=== PATIENT | male | born 1950 | race Caucasian/White ===

== ENCOUNTER → 2020-06-02 14:47 | Outpatient (POV) | payer MEDICARE, BC, SELFPAY | DX: Z00.00 Encounter for general adult medical examination without abnormal findings (principal) ==

== ENCOUNTER → 2021-01-03 11:13 | Outpatient (POV) | payer OTHER, SELFPAY ==
[2021-01-03 12:35] VITALS: BP 139/84; PULSE 74; RESP 18; O2SAT 98; BMI 36.2
--- NOTE | 2021-01-03 14:14 | HMH.PMCON ---
Assessment and Plan (1) Degenerative joint disease (DJD) of lumbar spine Status: Chronic Category: Medical Code(s): M47.816 - Spondylosis without myelopathy or radiculopathy, lumbar region (2) Lumbar radiculopathy Status: Chronic Category: Medical Code(s): M54.16 - Radiculopathy, lumbar region (3) Back pain Status: Chronic Category: Medical Code(s): M54.9 - Dorsalgia, unspecified - Assessment and plan all Dx Assessment and Plan for all problems:: Patient is going to move forward with looking into places that do medication management. I did offer physical therapy for dry needling he is excepted this. We will move forward with this. I had be happy to see him back in the future. I did briefly mention implantable options however at this time he wants to avoid any surgeries. Dr. Disla has reviewed this note and agrees with this plan of care. This note was dictated using voice recognition software and may contain errors or omissions HPI - Data of Consult Consult date: 01/03/21 Requesting Physician: Roxi Dickerson APRN Primary Care Provider: Referral Provider, MD - Consult Narrative Reason for consult: Back pain History of present illness: Mr. Campbell is a 70 year old male who presents today for consultation regards his low back pain. He recently has moved here from [place]. Patient was a established patient in a pain management clinic in [place]. Patient received some injections with no real relief. Patient states that it was determined he was a surgical candidate however at this time he does not want to move forward with any surgical intervention. Patient manages his pain currently with oxycodone, [place] and Tylenol 3. He takes this as needed. Patient I had a discussion that we would not be refilling these medications at this time. Patient understands. Patient also wanted to discuss dry needling. Patient has had this in the past with good relief. He rates his pain today a 6 out of 10. CC: Roxi Dickerson APRN [place] History I have reviewed the patient's past medical history: Yes Medical History: Reports:: Coronary Artery Disease, Deep Vein Thrombosis, Diabetes Mellitus Type 2, Hyperlipidemia, Hypertension, Peripheral Artery Disease Denies:: Cancer, Diabetes Mellitus Type 1, Internal Pacemaker, MRSA *Have you ever received a pneumonia vaccine?: Yes *Have you received a flu vaccine this season?: Yes Other Medical History: Reports: Arthritis, Thyroid Disease Other Surgeries: Yes: CABG, Cardiac Catheterization, Cardiac Surgery, Coronary Stent. No: Pacemaker Amputation: No Fractures: No - *Social History Smoking Status: Never smoker Alcohol Intake: never *Occupational Status:: other Housing: house Household Members: other *Travel in the last 8 weeks: None Family Hx:: Unable to obtain Review of Systems - Review of Systems ROS General: no recent weight change, no fever, no sleep disturbances Respiratory: no cough, no shortness of air, no recurring pulmonary infections Cardiovascular/Peripheral Vascular: No chest pain, No palpitations, no edema, no shortness of breath. Gastrointestinal: no new onset incontinence, normal bowel movements reported Genitourinary: no new onset incontinence Musculoskeletal: Back pain, leg pain Psychiatric: normal mood/ affect Neurological: [denies new onset weakness in extremities], [denies new onset balance issues] Meds Home Medications Medication Instructions Recorded Confirmed Type Apixaban [Eliquis] 5 mg PO DAILY 01/03/21 01/03/21 History Empagliflozin [Jardiance] 10 mg PO DAILY 01/03/21 01/03/21 History Furosemide [Furosemide 40MG tAB*] 40 mg PO DAILY 01/03/21 01/03/21 History Icosapent Ethyl [Vascepa] 1 gm PO DAILY 01/03/21 01/03/21 History Levothyroxine Sodium [Synthroid 25 mcg PO HS 01/03/21 01/03/21 History 25mcg (0.025mg) tablet] Rosuvastatin Calcium 10 mg PO DAILY 01/03/21 01/03/21 History Semaglutide [Ozempic] 5 mg * WEEKLY
== END ==
PROVIDERS: Visit Provider Clinical Nurse Specialist Family Health
DX: M47.896 Other spondylosis, lumbar region (principal); M54.16 Radiculopathy, lumbar region; M54.9 Dorsalgia, unspecified
CPT/HCPCS: 99202; G0463

== ENCOUNTER → 2021-05-13 13:04 | Outpatient (POV) | payer OTHER, MEDICARE, BC, SELFPAY ==
[2021-05-13 13:40] VITALS: BP 108/73; PULSE 67; RESP 20; TEMP 36.6; O2SAT 95; BMI 36.2
--- NOTE | 2021-05-13 14:03 | P.CONS_ITS ---
[facility] Pain Management SOAP Note Subjective:: This patient is a pleasant 70-year-old white male who we are treating for neck pain and low back pain with radiculopathy symptoms. He recently moved from [place]. He did have a pain management doctor there he has had several injections with no relief of his pain symptoms. He was recommended previously for neck surgery however he did not follow-up. He does take Tylenol 3 prescribed by his previous doctor he does take this as needed. He is here today to talk about his neck pain and low back pain. Objective:: Alert and oriented x3 no acute distress. Patient does have limited range of motion of the cervical spine and lumbar spine. Motor strength of the upper and lower extremities is 5/5. There is no gross sensory deficit. Assessment:: Degenerative disc disease of the cervical spine with cervical radiculopathy symptoms. Degenerative disc disease of lumbar spine with lumbar radiculopathy symptoms. Plan:: We will refer him to Dr. Wallace for neurosurgical evaluation of the cervical spine. We will write him for Tylenol #3 1 tablet daily to help him with his pain symptoms as needed. Carlos Manuel and drug screen are all appropriate [facility] [phone]. [facility] History Medical History: Reports:: Coronary Artery Disease, Deep Vein Thrombosis, Diabetes Mellitus Type 2, Hyperlipidemia, Hypertension, Peripheral Artery Disease Denies:: Cancer, Diabetes Mellitus Type 1, Internal Pacemaker, MRSA *Have you ever received a pneumonia vaccine?: No *Have you received a flu vaccine this season?: No Other Medical History: Reports: Arthritis, Thyroid Disease Other Surgeries: Yes: CABG, Cardiac Catheterization, Cardiac Surgery, Coronary Stent. No: Pacemaker Amputation: No Fractures: No - *Social History Smoking Status: Never smoker Alcohol Intake: never *Occupational Status:: other Housing: house Household Members: other *Travel in the last 8 weeks: None Family Hx:: Unable to obtain
== END ==
PROVIDERS: PCP Family Medicine; Visit Provider Anesthesiology
DX: M50.10 Cervical disc disorder with radiculopathy, unspecified cervical region (principal); M51.16 Intervertebral disc disorders with radiculopathy, lumbar region
CPT/HCPCS: 99212; G0463

== ENCOUNTER → 2021-07-07 11:07 | Outpatient (POV) | payer OTHER, MEDICARE, BC, SELFPAY ==
[2021-07-07 11:31] VITALS: BP 132/90; PULSE 77; RESP 18; O2SAT 95; BMI 33.5
--- NOTE | 2021-07-07 11:51 | HMH.PAINSOAP ---
[facility] Pain Management SOAP Note Subjective:: Patient is a 70-year-old white male who presents today for medication refills. He is being treated for chronic neck pain and low back pain. He did recently relocate from [place]. He was in a pain management center there and has had several injections in the past with minimal relief. He was recommended for cervical spine surgery, however, declined to proceed with surgery. He does take Tylenol 3 prescribed by his primary care provider. This does give him significant relief. He only takes the medication as needed. He rates his pain a [address] Disla did refer the patient to neurosurgery with Dr. Wallace. He does continue to have significant pain in his neck at this time. Patient says the pain is significantly relieved with oral medications. He also has pain that radiates into his bilateral upper extremities. Review of Systems General: No recent weight changes, no fever, no sleep disturbances Respiratory: No cough, no shortness of air, no recurring pulmonary infections Cardiovascular/peripheral vascular: No chest pain, no palpitations, no edema, no shortness of breath Gastrointestinal: No new onset incontinence, normal bowel movements reported Genitourinary: No new onset incontinence Musculoskeletal: Neck pain worse with movement and pain into bilateral upper extremities Psychiatric: [Normal mood/affect] Neurological: [Denies weakness in extremities], [denies balance issues] Objective:: Physical exam General: Alert and oriented x3, no acute distress, pleasant and cooperative Lungs: Respirations even and unlabored, symmetrical chest expansion Eyes: PERRL Musculoskeletal: Flexion and extension of cervical [spine] somewhat guarded secondary to pain, normal gait noted Neurological: Speech clear, no gross sensory deficit Assessment:: Degenerative disc disease cervical spine cervical radiculopathy symptoms, low back pain Plan:: Patient is doing well with his Tylenol 3. We will continue him on Tylenol 3 1 tablet p.o. daily as needed pain. We will see him back in the clinic in 3 months for reevaluation of symptoms. If he has any changes before his next visit he can contact the clinic. Risks and benefits of the medication have been explained in detail to the patient. The patient does understand the risk of dependence on the medication when given over a prolonged period. Patient has been advised of risks of oversedation with the prescribed medication. Narcan has been offered to the paitent in the event of oversedation. Patient has been advised that a family member should also be educated regarding administration of Narcan. The patient has been advised to consult with his/her primary care provider and pharmacist regarding drug-drug interaction of medications currently prescribed. Patient has been prescribed a controlled substance after being counseled on the medication, medication safety, and possible side effects. BLAYNE report has been obtained and reviewed prior to prescription and found to be appropriate. Opioid contract was reviewed and signed by the patient, and that they have agreed to all of the terms set forth by our compliance program. Patient has been instructed to contact the clinic with any concerns before the next appointment. Dr. Disla has reviewed this note and agrees with this plan of care. This note was dictated using voice recognition software and make contain errors or omissions. [facility] History I have reviewed the patient's past medical history: Yes Medical History: Reports:: Coronary Artery Disease, Deep Vein Thrombosis, Diabetes Mellitus Type 2, Hyperlipidemia, Hypertension, Peripheral Artery Disease Denies:: Cancer, Diabetes Mellitus Type 1, Internal Pacemaker, MRSA *Have you ever received a pneumonia vaccine?: No *Have you received a flu vaccine this season?: No Other Medical History: Reports: Arthritis, Thyroid Disease Other Surgeries: Yes: CABG,
== END ==
PROVIDERS: Visit Provider Clinical Nurse Specialist Family Health
DX: M50.10 Cervical disc disorder with radiculopathy, unspecified cervical region (principal); M54.50 Low back pain, unspecified
CPT/HCPCS: 99212; G0463

== ENCOUNTER → 2021-09-14 13:22 | Outpatient (POV) | payer OTHER, MEDICARE, BC, SELFPAY ==
[2021-09-14 13:38] VITALS: BP 138/89; PULSE 94; RESP 20; TEMP 36.2; O2SAT 96; BMI 34.9
--- NOTE | 2021-09-14 15:31 | HMH.PAINSOAP ---
[facility] Pain Management SOAP Note Subjective:: Patient is a pleasant 70-year-old white male who we have been treating for chronic neck pain with degenerative disc disease of the cervical spine with cervical radiculopathy symptoms as well as low back pain with degenerative disease of lumbar spine with lumbar radiculopathy symptoms. He currently is on Tylenol 3 prescribed once daily as needed for pain. He is doing very well with this. He is having issues with the Department of Labor covering his medications. Overall his pain score is 2-3 out of 10. His functional level with this medication. We will continue his Tylenol 3 once daily as needed for pain. We will follow back up with him in 3 months. He also does have a MRI scheduled and evaluation by Dr. Wallace. Objective:: Alert and oriented x3 no acute distress. Patient does have an antalgic gait. Motor strength of lower extremities is 5/5. There is no gross sensory deficit. Assessment:: Degenerative disc disease of lumbar spine with lumbar radiculopathy symptoms. Degenerative disease of cervical spine with cervical radiculopathy symptoms. Plan:: We will prescribe his Tylenol 3 once daily as needed for pain. We will follow-up with him in 3 months. We will also follow-up on Dr. Wallace's recommendations after MRI and evaluation. [facility] History Medical History: Reports:: Coronary Artery Disease, Deep Vein Thrombosis, Diabetes Mellitus Type 2, Hyperlipidemia, Hypertension, Peripheral Artery Disease Denies:: Cancer, Diabetes Mellitus Type 1, Internal Pacemaker, MRSA *Have you ever received a pneumonia vaccine?: No *Have you received a flu vaccine this season?: No Other Medical History: Reports: Arthritis, Thyroid Disease Other Surgeries: Yes: CABG, Cardiac Catheterization, Cardiac Surgery, Coronary Stent. No: Pacemaker Amputation: No Fractures: No - *Social History Smoking Status: Never smoker Alcohol Intake: never *Occupational Status:: retired Housing: house Household Members: other *Travel in the last 8 weeks: None Family Hx:: Unable to obtain
== END ==
PROVIDERS: PCP Family Medicine; Visit Provider Anesthesiology
DX: M51.16 Intervertebral disc disorders with radiculopathy, lumbar region (principal); M50.10 Cervical disc disorder with radiculopathy, unspecified cervical region
CPT/HCPCS: 99212; G0463

== ENCOUNTER → 2022-02-03 14:37 | Outpatient (POV) | payer OTHER, SELFPAY ==
[2022-02-03 14:50] VITALS: BP 129/71; PULSE 73; RESP 18; TEMP 36.7; O2SAT 95; BMI 36.6
--- NOTE | 2022-02-03 15:06 | HMH.PAINSOAP ---
[facility] Pain Management SOAP Note Subjective:: Patient is a 71-year-old white male who we are treating for chronic neck pain as well is degenerative disc disease of cervical spine with cervical radiculopathy symptoms as well as low back pain with degenerative disease of lumbar spine with lumbar radiculopathy symptoms. Currently is on Tylenol 3 once daily as needed for pain. He is doing well with this. We are still working through issues with his insurance and having the Department of Labor through Worker's Comp. cover his medications. Overall he is doing well with this medication regimen. We will refill this today. This will need to go through [employer] and the Department of Labor to cover cost of this medication. Objective:: Alert and oriented x3 no acute distress. Patient does have an antalgic gait. Motor strength of the lower extremities is 5/5. There is no gross sensory deficit. Assessment:: Degenerative disc disease of lumbar spine with lumbar radiculopathy symptoms. Degenerative disc disease of cervical spine with cervical radiculopathy symptoms. Plan:: We will refill his Tylenol 3 once daily as needed for pain. We will follow-up with him in 3 months. He is also waiting to see Dr. Wallace for neurosurgical evaluation. [facility] History Medical History: Reports:: Coronary Artery Disease, Deep Vein Thrombosis, Diabetes Mellitus Type 2, Hyperlipidemia, Hypertension, Peripheral Artery Disease Denies:: Cancer, Diabetes Mellitus Type 1, Internal Pacemaker, MRSA *Have you ever received a pneumonia vaccine?: No *Have you received a flu vaccine this season?: No Other Medical History: Reports: Arthritis, Thyroid Disease Other Surgeries: Yes: CABG, Cardiac Catheterization, Cardiac Surgery, Coronary Stent. No: Pacemaker Amputation: No Fractures: No - *Social History Smoking Status: Never smoker Alcohol Intake: never *Occupational Status:: other Housing: house Household Members: other *Travel in the last 8 weeks: None Family Hx:: Unable to obtain
== END ==
PROVIDERS: PCP Family Medicine; Visit Provider Anesthesiology
DX: M51.16 Intervertebral disc disorders with radiculopathy, lumbar region (principal); M50.10 Cervical disc disorder with radiculopathy, unspecified cervical region
CPT/HCPCS: 99212; G0463

== ENCOUNTER → 2022-06-13 14:12 | Outpatient (POV) | payer OTHER, SELFPAY ==
[2022-06-13 14:24] VITALS: BP 121/76; PULSE 77; RESP 20; O2SAT 97; BMI 36.2
--- NOTE | 2022-06-13 14:53 | A.OFFVIS_ITS ---
[facility] Pain Management SOAP Note Subjective:: Patient is a pleasant 71-year-old male who presents today for medication refill and follow-up. We are currently treating the patient for degenerative disc disease of cervical and lumbar spine with cervical and lumbar radiculopathy symptoms, chronic neck pain, low back pain. Today the patient rates his pain a 8 out of 10. He states that the pain is in his neck back and radiates into his lower extremities. Patient states this is a achy, throbbing sensation that is worse with increased activity and is intermittent. Patient denies any new trauma or injury. He states this is a department of labor workers comp related injury and that they are the ones who are covering all his medications. He is currently managed with Tylenol 3. Patient denies any side effects from this medication. He states this medication does adequately help manage his pain symptoms. His Carlos Manuel is [phone]. It has been reviewed and appropriate. Review of Systems: General: No recent weight changes, no fever, no sleep disturbances Respiratory: No cough, no shortness of air, no recurring pulmonary infections Cardiovascular/peripheral vascular: No chest pain, no palpitations, no edema, no shortness of breath Gastrointestinal: No new onset incontinence, normal bowel movements reported Genitourinary: No new onset incontinence Musculoskeletal: Neck pain, low back pain, leg pain Psychiatric: [Normal mood/affect] Neurological: [Denies weakness in extremities], [denies balance issues] Objective:: Physical Exam: General: Alert and oriented x3, no acute distress, pleasant and cooperative Lungs: Respirations even and unlabored, symmetrical chest expansion Eyes: PERRL Musculoskeletal: Flexion and extension of cervical, lumbar [spine] somewhat guarded secondary to pain, [antalgic gait noted] Neurological: Speech clear, no gross sensory deficit Assessment:: Degenerative disc disease of cervical and lumbar spine with cervical and lumbar radiculopathy symptoms, chronic neck pain, low back pain Plan:: Patient continues to have significant pain in his low back, neck, legs. Patient is currently doing well with his medication regimen. I will send in a refill of his Tylenol 3 and provide a 1 month supply of this medication. We will try and send this prescription through his [employer] prescription insurance which is related to his Worker's Comp. Patient will return to clinic in 3 months for reevaluation of symptoms, medication refill and follow-up. Patient has been advised of risks of oversedation with the prescribed medication. Narcan has been offered to the patient in the event of oversedation. Patient has been advised that a family member should also be educated regarding administration of Narcan. Patient has been instructed to contact the clinic with any concerns before the next appointment. Dr. Disla has reviewed this note and agrees with this plan of care. This note was dictated using voice recognition software and make contain errors or omissions. PFSH PFSH Social History Smoking Status: Never smoker alcohol intake: never substance use type: prescription drug current occupational status: other Travel in the last 8 weeks: None household members: other housing: house current occupational exposures/hazards: No caffeine: No
== END | disposition home or self-care (01) ==
PROVIDERS: PCP Family Medicine; Visit Provider Nurse Anesthetist, Certified Registered
DX: M50.10 Cervical disc disorder with radiculopathy, unspecified cervical region (principal); M51.16 Intervertebral disc disorders with radiculopathy, lumbar region
CPT/HCPCS: 99212; G0463

== ENCOUNTER → 2022-09-14 13:07 | Outpatient (POV) | payer OTHER, SELFPAY ==
[2022-09-14 13:31] VITALS: BP 124/83; PULSE 83; RESP 18; O2SAT 99; BMI 36.2
--- NOTE | 2022-09-14 15:22 | A.OFFVIS_ITS ---
[facility] Pain Management SOAP Note Subjective:: Patient is a pleasant 71-year-old male who presents today for medication refill and follow-up. We are currently treating the patient for degenerative disc disease of cervical and lumbar spine with cervical and lumbar radiculopathy symptoms, chronic neck pain, low back pain. Today the patient rates his pain a 8 out of 10. Patient denies any new trauma or injury. Patient denies any change location or type of pain he experiences. Patient does state his pain is in his neck and low back that does radiate into his lower extremities. He does describe this as a aching, throbbing sensation that is worse with increased activity. Patient is currently managed with Tylenol 3. Patient denies any side effects from this medication. He states this medication does help with his pain symptoms. Patient states he does typically take Aleve with the Tylenol 3 and it works well. This is related to a workers comp injury and they are supposed to cover his medications. His Carlos Manuel is [phone]. Its been reviewed and appropriate. Review of Systems: General: No recent weight changes, no fever, no sleep disturbances Respiratory: No cough, no shortness of air, no recurring pulmonary infections Cardiovascular/peripheral vascular: No chest pain, no palpitations, no edema, no shortness of breath Gastrointestinal: No new onset incontinence, normal bowel movements reported Genitourinary: No new onset incontinence Musculoskeletal: Neck pain, low back pain Psychiatric: [Normal mood/affect] Neurological: [Denies weakness in extremities], [denies balance issues] Objective:: Physical Exam: General: Alert and oriented x3, no acute distress, pleasant and cooperative Lungs: Respirations even and unlabored, symmetrical chest expansion Eyes: PERRL Musculoskeletal: Flexion and extension of cervical, lumbar [spine] somewhat guarded secondary to pain, [antalgic gait noted] Neurological: Speech clear, no gross sensory deficit ORT score updated with low risk Assessment:: Degenerative disc disease of cervical and lumbar spine with cervical and lumbar radiculopathy symptoms, chronic neck pain, low back pain Plan:: Patient continues to experience significant pain in his neck and low back. Patient did have limited range of motion of his lumbar spine and cervical spine during today's visit. I will refill the patient's Tylenol 3 daily and provide a 1 month supply of this medication. I will also order the patient a compounding cream. Patient will return to clinic in 1 month for reevaluation of symptoms, medication refill and follow-up. Patient has been instructed to contact the clinic with any concerns before the next appointment. Dr. Disla has reviewed this note and agrees with this plan of care. This note was dictated using voice recognition software and make contain errors or omissions. [facility] Disclaimer: The information contained in this section may have been updated after the patient was seen, as this information can be updated by other users. Social History (Updated 06/13/22 @ 14:59 by Kendall Mederos CRNA) Smoking Status: Never smoker alcohol intake: never substance use type: prescription drug current occupational status: retired Travel in the last 8 weeks: None household members: other housing: house current occupational exposures/hazards: No caffeine: No
== END | disposition home or self-care (01) ==
PROVIDERS: PCP Family Medicine; Visit Provider Nurse Practitioner Family
DX: M51.16 Intervertebral disc disorders with radiculopathy, lumbar region (principal); M50.10 Cervical disc disorder with radiculopathy, unspecified cervical region
CPT/HCPCS: 99212; G0463

== ENCOUNTER → 2022-09-27 11:20 | Outpatient (POV) | payer OTHER, SELFPAY ==
--- NOTE | 2022-09-27 12:19 | A.OFFVIS_ITS ---
[facility] Pain Management SOAP Note Subjective:: Patient is a pleasant 72-year-old male who presents today for follow-up. We are currently treating the patient for degenerative disc disease of cervical and lumbar spine with cervical and lumbar radiculopathy symptoms, chronic neck pain, low back pain. Today he rates his pain a 4 out of 10. Patient denies any new trauma or injury. Patient denies any change location or type of pain he experiences. At our last visit I did prescribe the patient a compounding cream that he states provides significant improvement. Patient is currently managed with tramadol 3. Patient denies any side effects from this medication. He states this medication does help manage his pain symptoms. Patient does take Aleve with this to provide additional improvement. His Carlos Manuel is [id number]. Its been reviewed and appropriate. Review of Systems: General: No recent weight changes, no fever, no sleep disturbances Respiratory: No cough, no shortness of air, no recurring pulmonary infections Cardiovascular/peripheral vascular: No chest pain, no palpitations, no edema, no shortness of breath Gastrointestinal: No new onset incontinence, normal bowel movements reported Genitourinary: No new onset incontinence Musculoskeletal: Low back pain Psychiatric: [Normal mood/affect] Neurological: [Denies weakness in extremities], [denies balance issues] Objective:: Physical Exam: General: Alert and oriented x3, no acute distress, pleasant and cooperative Lungs: Respirations even and unlabored, symmetrical chest expansion Eyes: PERRL Musculoskeletal: Flexion and extension of lumbar [spine] somewhat guarded secondary to pain, [antalgic gait noted] Neurological: Speech clear, no gross sensory deficit ORT score updated with low risk Assessment:: Degenerative disc disease of cervical and lumbar spine with cervical and lumbar radiculopathy symptoms, chronic neck pain, low back pain Plan:: Patient has had improvement following the addition of his compounding cream and does not require any additional refills at this time. Patient did just have his Tylenol 3 refill sent in last month. Patient will return to clinic in 3 months for reevaluation of symptoms, medication refill and follow-up. Patient has been instructed to contact the clinic with any concerns before the next appointment. Dr. Disla has reviewed this note and agrees with this plan of care. This note was dictated using voice recognition software and make contain errors or omissions. [facility] Disclaimer: The information contained in this section may have been updated after the patient was seen, as this information can be updated by other users. Social History (Updated 06/13/22 @ 14:59 by Kendall Mederos CRNA) Smoking Status: Never smoker alcohol intake: never substance use type: prescription drug current occupational status: retired Travel in the last 8 weeks: None household members: other housing: house current occupational exposures/hazards: No caffeine: No
[2022-09-27 12:31] VITALS: BP 101/60; PULSE 73; RESP 18; O2SAT 100; BMI 23.0
== END ==
PROVIDERS: Visit Provider Nurse Practitioner Family
DX: M51.16 Intervertebral disc disorders with radiculopathy, lumbar region (principal); M50.10 Cervical disc disorder with radiculopathy, unspecified cervical region
CPT/HCPCS: 99212; G0463

== ENCOUNTER → 2023-01-01 10:26 | Outpatient (POV) | payer OTHER, SELFPAY ==
[2023-01-01 10:48] VITALS: BP 128/72; PULSE 66; RESP 18; O2SAT 95; BMI 36.9
--- NOTE | 2023-01-01 11:03 | EXP.PAIN.SOA ---
[facility] Pain Management SOAP Note Subjective:: Patient is a pleasant 72-year-old male who presents today for follow-up. We are currently treating the patient for degenerative disc disease of cervical and lumbar spine with cervical and lumbar radiculopathy symptoms, chronic neck pain, low back pain. Today he rates his pain a 4 out of 10. Patient denies any new trauma or injury. He does state that he is having worsening cramping in his legs that is more prominent at night. Patient states that he has been taking [id number] magnesium as well as potassium. Patient denies any side effects from these medications. He is managed from our office with compounding cream and Tylenol 3. Patient denies any side effects from these medications. His Carlos Manuel is [id number]. Its been reviewed and appropriate. Review of Systems: General: No recent weight changes, no fever, no sleep disturbances Respiratory: No cough, no shortness of air, no recurring pulmonary infections Cardiovascular/peripheral vascular: No chest pain, no palpitations, no edema, no shortness of breath Gastrointestinal: No new onset incontinence, normal bowel movements reported Genitourinary: No new onset incontinence Musculoskeletal: Low back pain Psychiatric: [Normal mood/affect] Neurological: [Denies weakness in extremities], [denies balance issues] Objective:: Physical Exam: General: Alert and oriented x3, no acute distress, pleasant and cooperative Lungs: Respirations even and unlabored, symmetrical chest expansion Eyes: PERRL Musculoskeletal: Flexion and extension of lumbar [spine] somewhat guarded secondary to pain, [antalgic gait noted] Neurological: Speech clear, no gross sensory deficit Assessment:: Degenerative disc disease of cervical and lumbar spine with cervical and lumbar radiculopathy symptoms, chronic neck pain, low back pain Plan:: Patient continues to experience significant pain in his neck and low back with limited range of motion. I will refill his Tylenol 3 and provide a 3-month supply of this medication. I have also counseled the patient to contact his primary care doctor and have updated labs for his potassium level. I have discussed with him possible side effects of being too high or too low on his potassium level and possible cardiac arrhythmias. Patient states he will talk to his pre sales technical consultant to let him know that he has been adding potassium to his medication regimen. I have discussed with the patient that he may benefit from ropinirole 0.25 mg at bedtime. Patient states he will be seeing his primary care doctor today and that he will discuss with them this medication and contact our office if he does need a prescription or if his family doctor will prescribe it. Patient will return to clinic in 3 months for reevaluation of symptoms, medication refill and follow-up. Patient has been instructed to contact the clinic with any concerns before the next appointment. Dr. Disla has reviewed this note and agrees with this plan of care. This note was dictated using voice recognition software and make contain errors or omissions. [facility] Disclaimer: The information contained in this section may have been updated after the patient was seen, as this information can be updated by other users. Social History (Updated 06/13/22 @ 14:59 by Kendall Mederos CRNA) Smoking Status: Never smoker alcohol intake: never substance use type: prescription drug current occupational status: retired Travel in the last 8 weeks: None household members: other housing: house current occupational exposures/hazards: No caffeine: No
== END | disposition home or self-care (01) ==
PROVIDERS: Visit Provider Nurse Practitioner Family
DX: M51.16 Intervertebral disc disorders with radiculopathy, lumbar region (principal); M50.10 Cervical disc disorder with radiculopathy, unspecified cervical region
CPT/HCPCS: 99212; G0463

== ENCOUNTER → 2023-03-23 11:16 | Outpatient (POV) | payer OTHER, SELFPAY ==
[2023-03-23 11:55] VITALS: BP 135/69; PULSE 71; RESP 18; O2SAT 96; BMI 36.2
--- NOTE | 2023-03-23 12:28 | EXP.PAIN.SOA ---
[facility] Pain Management SOAP Note Subjective:: This patient is a pleasant 72-year-old male that comes our clinic today for follow-up visit medication refill. We are currently treating the patient for degenerative disc lumbar spine multilevels. Lumbar radiculopathy. Degenerative disc cervical spine multilevels. Cervical radiculopathy. He rates his pain today 6/10. Patient describes low back pain as constant, dull, aching. Patient describes cervical neck pain as constant, dull, aching. We are currently managing the patient with Tylenol 3. He receives 7 pills from the pharmacy each month. However, patient states he does not take this daily. 7 pills are good for 30 days his Carlos Manuel #[id number] been reviewed and appropriate. Patient does not complain of any side effects or complications from the medication. Objective:: Patient is awake alert [place] x3. In no acute distress. Flexion-extension lumbar spine somewhat guarded secondary to pain. Deep tendon reflexes upper lower extremities normal. Motor strength upper and lower extremities normal. There is no gross sensory deficit. Gait is normal. Assessment:: Degenerative disc lumbar spine multilevels. Lumbar radiculopathy. Degenerative disc cervical spine multilevels. Cervical radiculopathy. Plan:: We will send refills for his medication. Tylenol 3. He will return in 2 months. [facility] Disclaimer: The information contained in this section may have been updated after the patient was seen, as this information can be updated by other users. Social History (Updated 06/13/22 @ 14:59 by Kendall Mederos CRNA) Smoking Status: Never smoker alcohol intake: never substance use type: prescription drug current occupational status: retired Travel in the last 8 weeks: None household members: other housing: house current occupational exposures/hazards: No caffeine: No
== END | disposition home or self-care (01) ==
PROVIDERS: Visit Provider Nurse Anesthetist, Certified Registered
DX: M50.10 Cervical disc disorder with radiculopathy, unspecified cervical region (principal); M51.16 Intervertebral disc disorders with radiculopathy, lumbar region
CPT/HCPCS: 99212; G0463

== ENCOUNTER → 2023-05-24 10:19 | Outpatient (POV) | payer OTHER, SELFPAY ==
--- NOTE | 2023-05-24 11:27 | EXP.PAIN.SOA ---
[facility] Pain Management SOAP Note Subjective:: Patient is a pleasant 72-year-old male who presents today for follow-up and medication refill. We are currently treating the patient for degenerative disc disease of cervical and lumbar spine with cervical and lumbar radiculopathy symptoms, chronic neck pain, low back pain. Today he rates his pain a 3 out of 10. Patient denies any new trauma or injury. He is managed from our office with compounding cream and Tylenol 3 daily. Patient denies any side effects from these medications. His Carlos Manuel is [id number]. Its been reviewed and appropriate. Review of Systems: General: No recent weight changes, no fever, no sleep disturbances Respiratory: No cough, no shortness of air, no recurring pulmonary infections Cardiovascular/peripheral vascular: No chest pain, no palpitations, no edema, no shortness of breath Gastrointestinal: No new onset incontinence, normal bowel movements reported Genitourinary: No new onset incontinence Musculoskeletal: Low back pain Psychiatric: [Normal mood/affect] Neurological: [Denies weakness in extremities], [denies balance issues] Objective:: Physical Exam: General: Alert and oriented x3, no acute distress, pleasant and cooperative Lungs: Respirations even and unlabored, symmetrical chest expansion Eyes: PERRL Musculoskeletal: Flexion and extension of lumbar [spine] somewhat guarded secondary to pain, [antalgic gait noted] Neurological: Speech clear, no gross sensory deficit Assessment:: Degenerative disc disease of cervical and lumbar spine with cervical and lumbar radiculopathy symptoms, chronic neck pain, low back pain Plan:: Patient continues to do well with his current medication regimen. I will refill his Tylenol 3 daily and provide a 3-month supply of this medication. Patient will return to clinic in 3 months for reevaluation of symptoms and medication refill. Patient has been advised of risks of oversedation with the prescribed medication. Narcan has been offered to the patient in the event of oversedation. Patient has been advised that a family member should also be educated regarding administration of Narcan. Patient has been instructed to contact the clinic with any concerns before the next appointment. Dr. Disla has reviewed this note and agrees with this plan of care. This note was dictated using voice recognition software and make contain errors or omissions. [facility] Disclaimer: The information contained in this section may have been updated after the patient was seen, as this information can be updated by other users. Social History (Updated 06/13/22 @ 14:59 by Kendall Mederos CRNA) Smoking Status: Never smoker alcohol intake: never substance use type: prescription drug current occupational status: retired Travel in the last 8 weeks: None household members: other housing: house current occupational exposures/hazards: No caffeine: No
[2023-05-24 12:23] VITALS: BP 116/68; PULSE 64; RESP 18; O2SAT 97; BMI 36.1
== END | disposition home or self-care (01) ==
PROVIDERS: Visit Provider Nurse Practitioner Family
DX: M50.10 Cervical disc disorder with radiculopathy, unspecified cervical region (principal); M51.16 Intervertebral disc disorders with radiculopathy, lumbar region; G89.29 Other chronic pain
CPT/HCPCS: 99212; G0463

== ENCOUNTER → 2023-08-22 11:08 | Outpatient (POV) | payer OTHER, SELFPAY ==
[2023-08-22 11:27] VITALS: BP 105/69; PULSE 74; RESP 18; O2SAT 95; BMI 37.3
--- NOTE | 2023-08-22 11:59 | A.OFFVIS_ITS ---
[facility] Pain Management SOAP Note Subjective:: Patient is a pleasant 72-year-old male who presents today for 3-month follow-up and medication refill. We are currently treating the patient for degenerative disc disease of cervical and lumbar spine with cervical and lumbar radiculopathy symptoms, chronic neck and low back pain. Today he rates his pain a 3 out of 10. He denies any new trauma or injury. Patient states he continues to have issues with his [employer] insurance and covering his medication. He states that he continues to pay [id number] for his Tylenol 3 daily that he is prescribed. Patient states that they did end up changing pharmacies to see if this would help however he continues to have problems. Patient is also prescribed compounded cream. His Carlos Manuel has been reviewed and is appropriate. Review of Systems: General: No recent weight changes, no fever, no sleep disturbances Respiratory: No cough, no shortness of air, no recurring pulmonary infections Cardiovascular/peripheral vascular: No chest pain, no palpitations, no edema, no shortness of breath Gastrointestinal: No new onset incontinence, normal bowel movements reported Genitourinary: No new onset incontinence Musculoskeletal: Low back pain Psychiatric: [Normal mood/affect] Neurological: [Denies weakness in extremities], [denies balance issues] Objective:: Physical Exam: General: Alert and oriented x3, no acute distress, pleasant and cooperative Lungs: Respirations even and unlabored, symmetrical chest expansion Eyes: PERRL Musculoskeletal: Flexion and extension of lumbar [spine] somewhat guarded secondary to pain, [antalgic gait noted] Neurological: Speech clear, no gross sensory deficit Assessment:: Degenerative disc disease of cervical and lumbar spine with cervical and lumbar radiculopathy symptoms, chronic neck and low back pain Plan:: I will refill the patient's Tylenol 3 daily and provide a 3-month supply of this medication. I have counseled the patient that we will do our best to help his pharmacy in order to get his insurance to cover this medication. Patient will return to clinic in 3 months for reevaluation of symptoms and plan of care. Patient has been advised of risks of oversedation with the prescribed medication. Narcan has been offered to the patient in the event of oversedation. Patient has been advised that a family member should also be educated regarding administration of Narcan. Patient has been instructed to contact the clinic with any concerns before the next appointment. Dr. Disla has reviewed this note and agrees with this plan of c are. This note was dictated using voice recognition software and make contain errors or omissions. [facility] Disclaimer: The information contained in this section may have been updated after the patient was seen, as this information can be updated by other users. Social History (Updated 06/13/22 @ 14:59 by Kendall Mederos CRNA) Smoking Status: Never smoker alcohol intake: never substance use type: prescription drug current occupational status: retired Travel in the last 8 weeks: None household members: other housing: house current occupational exposures/hazards: No caffeine: No
== END | disposition home or self-care (01) ==
PROVIDERS: Visit Provider Nurse Practitioner Family
DX: M50.10 Cervical disc disorder with radiculopathy, unspecified cervical region (principal); M51.16 Intervertebral disc disorders with radiculopathy, lumbar region; G89.29 Other chronic pain
CPT/HCPCS: 99212; G0463

== ENCOUNTER 2023-12-10 10:23 | Outpatient (POV) | payer OTHER, SELFPAY ==
[2023-12-10 10:36] VITALS: BP 121/72; PULSE 67; RESP 18; O2SAT 94; BMI 37.3
--- NOTE | 2023-12-10 10:58 | EXP.PAIN.SOA ---
[facility] Pain Management SOAP Note Subjective:: Patient is a pleasant 73-year-old male who presents today for medication refill and follow-up. Today he rates his pain at 3 out of 10. Patient denies any new injury or trauma. He does state that he has been having a little bit more pain in and around his left elbow that is sensitive to touch. He states he has not had any injury to this joint and that sometimes even just setting his elbow down against an object he has to move his arm and let his forearm hold the pressure so he keeps from having worsening pain at the elbow. Patient is currently managed with Tylenol 3 daily and compounded cream. Patient denies ever trying the compounded cream on his elbow. He does also state he continues to have issues with getting the Tylenol 3 covered by his insurance company. His Carlos Manuel has been reviewed and is appropriate. Review of Systems: General: No recent weight changes, no fever, no sleep disturbances Respiratory: No cough, no shortness of air, no recurring pulmonary infections Cardiovascular/peripheral vascular: No chest pain, no palpitations, no edema, no shortness of breath Gastrointestinal: No new onset incontinence, normal bowel movements reported Genitourinary: No new onset incontinence Musculoskeletal: Left elbow pain, low back pain Psychiatric: [Normal mood/affect] Neurological: [Denies weakness in extremities], [denies balance issues] Objective:: Physical Exam: General: Alert and oriented x3, no acute distress, pleasant and cooperative Lungs: Respirations even and unlabored, symmetrical chest expansion Eyes: PERRL Musculoskeletal: Flexion and extension of lumbar [spine] somewhat guarded secondary to pain, [antalgic gait noted] Neurological: Speech clear, no gross sensory deficit Assessment:: Degenerative disc disease of cervical and lumbar spine with cervical and lumbar radiculopathy symptoms, chronic low back and neck pain, left elbow pain Plan:: I will refill the patient's Tylenol 3 daily and provide a 3-month supply of this medication. Patient was counseled to use the compounded cream on his left elbow and see if this does help with his overall pain symptoms. I have also discussed with the patient that he may benefit from a compression sleeve around this joint. We will follow-up with this at future visits. Patient will return to clinic in 3 months for reevaluation of symptoms and plan of care. Risks and benefits of the medication have been explained in detail to the patient. The patient does understand the risk of dependence on the medication when given over a prolonged period. Patient has been advised of risks of oversedation with the prescribed medication. Narcan has been offered to the paitent in the event of oversedation. Patient has been advised that a family member should also be educated regarding administration of Narcan. The patient has been advised to consult with his/her primary care provider and pharmacist regarding drug-drug interaction of medications currently prescribed. Patient has been prescribed a controlled substance after being counseled on the medication, medication safety, and possible side effects. Opioid contract was reviewed and signed by the patient, and that they have agreed to all of the terms set forth by our compliance program. Patient has been instructed to contact the clinic with any concerns before the next appointment. Dr. Disla has reviewed this note and agrees with this plan of care. This note was dictated using voice recognition software and make contain errors or omissions. [facility] Disclaimer: The information contained in this section may have been updated after the patient was seen, as this information can be updated by other users. Social History (Updated 06/13/22 @ 14:59 by Kendall Mederos CRNA) Smoking Status: Never smoker alcohol intake: never substance use type: prescription drug current occupational status: retired Travel in the last 8 weeks: None household members: other housing: house current occupational exposures/hazards: No caffeine: No
== END 2023-12-10 23:59 | disposition home or self-care (01) ==
PROVIDERS: Visit Provider Nurse Practitioner Family
DX: M50.10 Cervical disc disorder with radiculopathy, unspecified cervical region (principal); M51.16 Intervertebral disc disorders with radiculopathy, lumbar region; G89.29 Other chronic pain; M25.522 Pain in left elbow
CPT/HCPCS: 99212; G0463

== ENCOUNTER 2024-03-20 12:59 | Outpatient (POV) | payer OTHER, SELFPAY ==
[2024-03-20 13:14] VITALS: BP 122/69; PULSE 71; RESP 16; O2SAT 95; BMI 36.6
--- NOTE | 2024-03-20 16:01 | A.OFFVIS_ITS ---
[facility] Disclaimer: The information contained in this section may have been updated after the patient was seen, as this information can be updated by other users. Social History (Updated 06/13/22 @ 14:59 by Kendall Mederos CRNA) Smoking Status: Never smoker alcohol intake: never substance use type: prescription drug current occupational status: other Travel in the last 8 weeks: None household members: other housing: house current occupational exposures/hazards: No caffeine: No PM Subjective & Objective Subjective Subjective:: Patient is a pleasant 73-year-old male who presents today for medication refill and follow-up. Today he rates his pain at 4 out of 10. Patient denies any new injury or trauma. Patient is currently managed with Tylenol 3 daily and compounded cream. Patient denies ever trying the compounded cream on his elbow. He does also state he continues to have issues with getting the Tylenol 3 covered by his insurance company. His Carlos Manuel has been reviewed and is appropriate. Review of Systems: General: No recent weight changes, no fever, no sleep disturbances Respiratory: No cough, no shortness of air, no recurring pulmonary infections Cardiovascular/peripheral vascular: No chest pain, no palpitations, no edema, no shortness of breath Gastrointestinal: No new onset incontinence, normal bowel movements reported Genitourinary: No new onset incontinence Musculoskeletal: low back pain Psychiatric: [Normal mood/affect] Neurological: [Denies weakness in extremities], [denies balance issues] Pain at rest (0-10 scale): 4 Objective Objective:: Physical Exam: General: Alert and oriented x3, no acute distress, pleasant and cooperative Lungs: Respirations even and unlabored, symmetrical chest expansion Eyes: PERRL Musculoskeletal: Flexion and extension of lumbar [spine] somewhat guarded secondary to pain, [antalgic gait noted] Neurological: Speech clear, no gross sensory deficit Has patient had previous pain injection?: No Conservative treatment options previously tried: Home exercise plan Length of treatment: Longer than 6 weeks and Prescription medications Length of treatment: Longer than 6 weeks Meds Home Medications and Allergies Home Medications Medication Instructions Recorded Confirmed Type apixaban 5 mg tablet 5 mg PO DAILY Blood thinner 01/03/21 03/20/24 History empagliflozin 10 mg tablet 10 mg PO DAILY Diabetes 01/03/21 03/20/24 History furosemide 40 mg tablet 40 mg PO DAILY hyperlipidemia 01/03/21 03/20/24 History icosapent ethyl 1 gram capsule 1 gm PO DAILY . 01/03/21 03/20/24 History rosuvastatin 10 mg tablet 10 mg PO DAILY hyperlipidemia 01/03/21 03/20/24 History semaglutide 0.25 mg or 0.5 mg (2 5 mg * WEEKLY Diabetes 01/03/21 03/20/24 History mg/1.5 mL) subcutaneous pen injector acetaminophen 300 mg-codeine 30 mg 1 tab PO DAILY #30 tabs 03/20/24 Rx tablet New Prescriptions to Start Prescriptions: acetaminophen-codeine Thania Wilder Allergies Allergy/AdvReac Type Severity Reaction Status Date / Time beta blockers AdvReac Uncoded 01/03/21 12:35 Assessment and Plan *Assessment and plan (1) Lumbar radiculopathy: Status: Chronic Category: Medical Code(s): M54.16 - Radiculopathy, lumbar region (2) Degenerative joint disease (DJD) of lumbar spine: Status: Chronic Qualifiers: Spinal osteoarthritis complication: with radiculopathy Qualified Code(s): M47.26 - Other spondylosis with radiculopathy, lumbar region Category: Medical Code(s): M47.816 - Spondylosis without myelopathy or radiculopathy, lumbar region (3) Back pain: Status: Chronic Qualifiers: Back pain laterality: bilateral Back pain location: low back pain Chronicity: chronic Sciatica presence: without sciatica Qualified Code(s): M54.50 - Low back pain, unspecified; G89.29 - Other chronic pain Category: Medical Code(s): M54.9 - Dorsalgia, unspecified Plan Patient continues to have chronic pain and difficulty with getting his [employer] to cover his medication. Patient did ask if we could go to anything stronger. Patient was counseled that he would have to be seen monthly if we did this option. Patient is agreeable to this. I did review over the chart and due to not having any updated imaging to see current conditions of his overall lumbar spine we will wait before changing his current medications. Patient will be counseled at his next visit that we would need some updated imaging before deciding to change his current medication. Patient will return to clinic in 3 months for reevaluation of symptoms and plan of care. Patient did have his Tylenol threes sent in with a 3-month prescription. Risks and benefits of the medication have been explained in detail to the patient. The patient does understand the risk of dependence on the medication when given over a prolonged period. Patient has been advised of risks of oversedation with the prescribed medication. Narcan has been offered to the paitent in the event of oversedation. Patient has been advised that a family member should also be educated regarding administration of Narcan. The patient has been advised to consult with his/her primary care provider and pharmacist regarding drug-drug interaction of medications currently prescribed. Patient has been prescribed a controlled substance after being counseled on the medication, medication safety, and possible side effects. Opioid contract was reviewed and signed by the patient, and that they have agreed to all of the terms set forth by our compliance program. Patient has been instructed to contact the clinic with any concerns before the next appointment. Dr. Disla has reviewed this note and agrees with this plan of care. This note was dictated using voice recognition software and make contain errors or omissions.
== END 2024-03-20 23:59 | disposition home or self-care (01) ==
PROVIDERS: Visit Provider Nurse Practitioner Family
DX: M47.26 Other spondylosis with radiculopathy, lumbar region (principal); M54.50 Low back pain, unspecified; G89.29 Other chronic pain; Z79.899 Other long term (current) drug therapy
CPT/HCPCS: 99212; G0463

== ENCOUNTER 2024-06-23 13:11 | Outpatient (POV) | payer OTHER, MEDICARE, BC, SELFPAY ==
--- NOTE | 2024-06-23 13:24 | EXP.PAIN.SOA ---
[facility] Disclaimer: The information contained in this section may have been updated after the patient was seen, as this information can be updated by other users. Social History (Updated 06/13/22 @ 14:59 by Kendall Mederos CRNA) Smoking Status: Never smoker alcohol intake: never substance use type: prescription drug current occupational status: other Travel in the last 8 weeks: None household members: other housing: house current occupational exposures/hazards: No caffeine: No PM Subjective & Objective Subjective Subjective:: Patient is a pleasant 73-year-old male who presents today for medication refill and follow-up. Today he rates his pain at 4 out of 10. Patient denies any new changes from his last visit. Patient is currently managed with Tylenol 3 daily and compounded cream. He still continues to have issues with getting the Tylenol 3 covered by his insurance company. His Carlos Manuel has been reviewed and is appropriate. Review of Systems: General: No recent weight changes, no fever, no sleep disturbances Respiratory: No cough, no shortness of air, no recurring pulmonary infections Cardiovascular/peripheral vascular: No chest pain, no palpitations, no edema, no shortness of breath Gastrointestinal: No new onset incontinence, normal bowel movements reported Genitourinary: No new onset incontinence Musculoskeletal: low back pain Psychiatric: [Normal mood/affect] Neurological: [Denies weakness in extremities], [denies balance issues] Pain at rest (0-10 scale): 4 Objective Objective:: Physical Exam: General: Alert and oriented x3, no acute distress, pleasant and cooperative Lungs: Respirations even and unlabored, symmetrical chest expansion Eyes: PERRL Musculoskeletal: Flexion and extension of lumbar [spine] somewhat guarded secondary to pain, [antalgic gait noted] Neurological: Speech clear, no gross sensory deficit Has patient had previous pain injection?: No Conservative treatment options previously tried: Home exercise plan Length of treatment: Greater than 6 weeks Meds Home Medications and Allergies Home Medications ?Medication ?Instructions ?Recorded ?Confirmed ?Type apixaban 5 mg tablet 5 mg PO DAILY Blood thinner 01/03/21 06/23/24 History empagliflozin 10 mg tablet 10 mg PO DAILY Diabetes 01/03/21 06/23/24 History furosemide 40 mg tablet 40 mg PO DAILY hyperlipidemia 01/03/21 06/23/24 History icosapent ethyl 1 gram capsule 1 gm PO DAILY . 01/03/21 06/23/24 History rosuvastatin 10 mg tablet 10 mg PO DAILY hyperlipidemia 01/03/21 06/23/24 History semaglutide 0.25 mg or 0.5 mg (2 5 mg * WEEKLY Diabetes 01/03/21 06/23/24 History mg/1.5 mL) subcutaneous pen injector acetaminophen 300 mg-codeine 30 mg 1 tab PO DAILY #30 tabs 03/20/24 06/23/24 Rx tablet New Prescriptions to Start Prescriptions: Allergies Allergy/AdvReac Type Severity Reaction Status Date / Time beta blockers AdvReac Uncoded 01/03/21 12:35 Assessment and Plan *Assessment and plan (1) Lumbar radiculopathy: Status: Chronic Category: Medical Code(s): M54.16 - Radiculopathy, lumbar region (2) Degenerative joint disease (DJD) of lumbar spine: Status: Chronic Qualifiers: Spinal osteoarthritis complication: with radiculopathy Qualified Code(s): M47.26 - Other spondylosis with radiculopathy, lumbar region Category: Medical Code(s): M47.816 - Spondylosis without myelopathy or radiculopathy, lumbar region Plan We will refill the patient's Tylenol 3 and provide a 3month supply of this medication. Patient did state that the last couple of times he has had it sent through his [employer] pharmacy that they have told him the medication was unavailable. I did certified credit counselor the patient to contact our office if this is a problem this month and we can send that prescription to a different pharmacy. Patient agrees with plan of care. Patient will return to clinic in 3 months for reevaluation of symptoms and plan of care. Risks and benefits of the medication have been explained in detail to the patient. The patient does understand the risk of dependence on the medication when given over a prolonged period. Patient has been advised of risks of oversedation with the prescribed medication. Narcan has been offered to the paitent in the event of oversedation. Patient has been advised that a family member should also be educated regarding administration of Narcan. The patient has been advised to consult with his/her primary care provider and pharmacist regarding drug-drug interaction of medications currently prescribed. Patient has been prescribed a controlled substance after being counseled on the medication, medication safety, and possible side effects. Opioid contract was reviewed and signed by the patient, and that they have agreed to all of the terms set forth by our compliance program. Patient has been instructed to contact the clinic with any concerns before the next appointment. Dr. Disla has reviewed this note and agrees with this plan of care. This note was dictated using voice recognition software and make contain errors or omissions.
[2024-06-23 14:31] VITALS: BP 109/66; PULSE 87; RESP 16; O2SAT 98; BMI 34.8
== END 2024-06-23 23:59 | disposition home or self-care (01) ==
PROVIDERS: Visit Provider Nurse Practitioner Family
DX: M47.26 Other spondylosis with radiculopathy, lumbar region (principal)
CPT/HCPCS: 99212; G0463

== ENCOUNTER 2024-09-22 12:51 | Outpatient (POV) | payer OTHER, SELFPAY ==
--- NOTE | 2024-09-22 13:37 | A.OFFVIS_ITS ---
[facility] Disclaimer: The information contained in this section may have been updated after the patient was seen, as this information can be updated by other users. Social History (Updated 06/13/22 @ 14:59 by Kendall Mederos CRNA) Smoking Status: Never smoker alcohol intake: never substance use type: prescription drug current occupational status: other Travel in the last 8 weeks: None household members: other housing: house current occupational exposures/hazards: No caffeine: No PM Subjective & Objective Subjective Subjective:: Patient is a pleasant 73-year-old male who presents today for medication refill and 3 months follow-up. Today he rates his pain at 4 out of 10. Patient denies any new changes from his last visit. He is currently managed with Tylenol 3 daily and compounded cream. He does state that through the years he has always had a headache with any type of acetaminophen products. He does state that the Tylenol 3 still helps however that he finds that Aleve sometimes works even better without giving the headache side effect. His Carlos Manuel has been reviewed and is appropriate. Review of Systems: General: No recent weight changes, no fever, no sleep disturbances Respiratory: No cough, no shortness of air, no recurring pulmonary infections Cardiovascular/peripheral vascular: No chest pain, no palpitations, no edema, no shortness of breath Gastrointestinal: No new onset incontinence, normal bowel movements reported Genitourinary: No new onset incontinence Musculoskeletal: low back pain Psychiatric: [Normal mood/affect] Neurological: [Denies weakness in extremities], [denies balance issues] Pain at rest (0-10 scale): 4 Objective Objective:: Physical Exam: General: Alert and oriented x3, no acute distress, pleasant and cooperative Lungs: Respirations even and unlabored, symmetrical chest expansion Eyes: PERRL Musculoskeletal: Flexion and extension of lumbar [spine] somewhat guarded secondary to pain, [antalgic gait noted] Neurological: Speech clear, no gross sensory deficit Has patient had previous pain injection?: No Conservative treatment options previously tried: Prescription medications Length of treatment: Longer than 12 weeks Meds Home Medications and Allergies Home Medications ?Medication ?Instructions ?Recorded ?Confirmed ?Type apixaban 5 mg tablet 5 mg PO DAILY Blood thinner 01/03/21 09/22/24 History empagliflozin 10 mg tablet 10 mg PO DAILY Diabetes 01/03/21 09/22/24 History furosemide 40 mg tablet 40 mg PO DAILY hyperlipidemia 01/03/21 09/22/24 History icosapent ethyl 1 gram capsule 1 gm PO DAILY . 01/03/21 09/22/24 History rosuvastatin 10 mg tablet 10 mg PO DAILY hyperlipidemia 01/03/21 09/22/24 History semaglutide 0.25 mg or 0.5 mg (2 5 mg * WEEKLY Diabetes 01/03/21 09/22/24 History mg/1.5 mL) subcutaneous pen injector acetaminophen 300 mg-codeine 30 mg 1 tab PO DAILY #30 tabs 06/23/24 09/22/24 Rx tablet New Prescriptions to Start Prescriptions: Allergies Allergy/AdvReac Type Severity Reaction Status Date / Time beta blockers AdvReac Uncoded 01/03/21 12:35 Assessment and Plan *Assessment and plan (1) Back pain: Status: Chronic Qualifiers: Back pain laterality: bilateral Back pain location: low back pain Chronicity: chronic Sciatica presence: without sciatica Qualified Code(s): M54.50 - Low back pain, unspecified; G89.29 - Other chronic pain Category: Medical Code(s): M54.9 - Dorsalgia, unspecified (2) Lumbar radiculopathy: Status: Chronic Category: Medical Code(s): M54.16 - Radiculopathy, lumbar region (3) Degenerative joint disease (DJD) of lumbar spine: Status: Chronic Qualifiers: Spinal osteoarthritis complication: with radiculopathy Qualified Code(s): M47.26 - Other spondylosis with radiculopathy, lumbar region Category: Medical Code(s): M47.816 - Spondylosis without myelopathy or radiculopathy, lumbar region Plan I did discuss with the patient that I do believe it might be beneficial to try tramadol in place of the Tylenol 3 and see if this causes any headache residual while still helping his daily aches and pains. Patient agrees with this plan of care. I will send in a 1 month supply with 2 refills. Patient was counseled that if it does provide significant relief he can fill the remainder prescriptions however if it does not help that they will on their own. Patient will return to clinic in 3 months for reevaluation of symptoms and plan of care. Risks and benefits of the medication have been explained in detail to the patient. The patient does understand the risk of dependence on the medication when given over a prolonged period. Patient has been advised of risks of oversedation with the prescribed medication. Narcan has been offered to the paitent in the event of oversedation. Patient has been advised that a family member should also be educated regarding administration of Narcan. The patient has been advised to consult with his/her primary care provider and pharmacist regarding drug-drug interaction of medications currently prescribed. Patient has been prescribed a controlled substance after being counseled on the medication, medication safety, and possible side effects. Opioid contract was reviewed and signed by the patient, and that they have agreed to all of the terms set forth by our compliance program. A UDS is needed to verify patient's compliance with our office pain contract. This is ordered based off specific treatments related to chronic pain with the potential to abuse certain medications. Patient has been instructed to contact the clinic with any concerns before the next appointment. Dr. Disla has reviewed this note and agrees with this plan of care. This note was dictated using voice recognition software and make contain errors or omissions.
[2024-09-22 13:44] VITALS: BP 127/74; PULSE 72; RESP 14; O2SAT 93; BMI 34.8
== END 2024-09-22 23:59 | disposition home or self-care (01) ==
PROVIDERS: Visit Provider Nurse Practitioner Family
DX: M54.50 Low back pain, unspecified (principal); G89.29 Other chronic pain; M47.26 Other spondylosis with radiculopathy, lumbar region
CPT/HCPCS: 99212; G0463

== ENCOUNTER 2024-12-29 09:10 | Outpatient (POV) | payer OTHER, MEDICARE, SELFPAY ==
[2024-12-29 10:05] VITALS: BP 121/70; PULSE 78; RESP 16; O2SAT 97; BMI 34.8
--- NOTE | 2024-12-29 10:22 | A.OFFVIS_ITS ---
[facility] Disclaimer: The information contained in this section may have been updated after the patient was seen, as this information can be updated by other users. Social History (Updated 06/13/22 @ 14:59 by Kendall Mederos CRNA) Smoking Status: Never smoker alcohol intake: never substance use type: prescription drug current occupational status: other Travel in the last 8 weeks: None household members: other housing: house current occupational exposures/hazards: No caffeine: No PM Subjective & Objective Subjective Subjective:: Patient is a pleasant 74-year-old male who presents today for 3-month follow-up. Today he rates his pain a 8 out of 10. He denies any new trauma or injury. He does state that the tramadol did seem like it helped better than the previous Tylenol 3. He was prescribed tramadol 50 mg daily. He does state however that due to still ongoing issues with his Worker's Comp. not wanting to cover the medication he only got a 7 days worth. Patient does state today that he would like to just send this through his regular insurance to [facility]. His Carlos Manuel has been reviewed and is appropriate. Review of Systems: General: No recent weight changes, no fever, no sleep disturbances Respiratory: No cough, no shortness of air, no recurring pulmonary infections Cardiovascular/peripheral vascular: No chest pain, no palpitations, no edema, no shortness of breath Gastrointestinal: No new onset incontinence, normal bowel movements reported Genitourinary: No new onset incontinence Musculoskeletal: Low back pain Psychiatric: [Normal mood/affect] Neurological: [Denies weakness in extremities], [denies balance issues] Pain at rest (0-10 scale): 8 Objective Objective:: Physical Exam: General: Alert and oriented x3, no acute distress, pleasant and cooperative Lungs: Respirations even and unlabored, symmetrical chest expansion Eyes: PERRL Musculoskeletal: Flexion and extension of lumbar [spine] somewhat guarded secondary to pain, [antalgic gait noted] Neurological: Speech clear, no gross sensory deficit Has patient had previous pain injection?: No Conservative treatment options previously tried: Home exercise plan Length of treatment: Longer than 12 weeks Meds Home Medications and Allergies Home Medications ?Medication ?Instructions ?Recorded ?Confirmed ?Type apixaban 5 mg tablet 5 mg PO DAILY Blood thinner 01/03/21 12/29/24 History empagliflozin 10 mg tablet 10 mg PO DAILY Diabetes 01/03/21 12/29/24 History furosemide 40 mg tablet 40 mg PO DAILY hyperlipidemia 01/03/21 12/29/24 History icosapent ethyl 1 gram capsule 1 gm PO DAILY . 01/03/21 12/29/24 History rosuvastatin 10 mg tablet 10 mg PO DAILY hyperlipidemia 01/03/21 12/29/24 History semaglutide 0.25 mg or 0.5 mg (2 5 mg * WEEKLY Diabetes 01/03/21 12/29/24 History mg/1.5 mL) subcutaneous pen injector acetaminophen 300 mg-codeine 30 mg 1 tab PO DAILY #30 tabs 06/23/24 12/29/24 Rx tablet tramadol 50 mg tablet 50 mg PO DAILY #30 tabs 09/22/24 12/29/24 Rx New Prescriptions to Start Prescriptions: Allergies Allergy/AdvReac Type Severity Reaction Status Date / Time Beta-Blockers AdvReac Unknown Verified 10/31/24 10:16 (Beta-Adrenergic Bloc allergy reaction Assessment and Plan *Assessment and plan (1) Lumbar radiculopathy: Status: Chronic Category: Medical Code(s): M54.16 - Radiculopathy, lumbar region (2) Degenerative joint disease (DJD) of lumbar spine: Status: Chronic Qualifiers: Spinal osteoarthritis complication: with radiculopathy Qualified Code(s): M47.26 - Other spondylosis with radiculopathy, lumbar region Category: Medical Code(s): M47.816 - Spondylosis without myelopathy or radiculopathy, lumbar region (3) Back pain: Status: Chronic Qualifiers: Back pain location: low back pain Chronicity: chronic Back pain laterality: bilateral Sciatica presence: without sciatica Qualified Code(s): M54.50 - Low back pain, unspecified; G89.29 - Other chronic pain Category: Medical Code(s): M54.9 - Dorsalgia, unspecified Plan I will refill his tramadol and provide a 3-month supply of this medication. Patient will return to clinic in 3 months. Risks and benefits of the medication have been explained in detail to the patient. The patient does understand the risk of dependence on the medication when given over a prolonged period. Patient has been advised of risks of oversedation with the prescribed medi cation. Narcan has been offered to the paitent in the event of oversedation. Patient has been advised that a family member should also be educated regarding administration of Narcan. The patient has been advised to consult with his/her primary care provider and pharmacist regarding drug-drug interaction of medications currently prescribed. Patient has been prescribed a controlled substance after being counseled on the medication, medication safety, and possible side effects. Opioid contract was reviewed and signed by the patient, and that they have agreed to all of the terms set forth by our compliance program. A UDS is needed to verify patient's compliance with our office pain contract. This is ordered based off specific treatments related to chronic pain with the potential to abuse certain medications. Patient has been instructed to contact the clinic with any concerns before the next appointment. Dr. Disla has reviewed this note and agrees with this plan of care. This note was dictated using voice recognition software and make contain errors or omissions.
== END 2024-12-29 23:59 | disposition home or self-care (01) ==
PROVIDERS: Visit Provider Nurse Practitioner Family
DX: M47.26 Other spondylosis with radiculopathy, lumbar region (principal); M54.50 Low back pain, unspecified; G89.29 Other chronic pain
CPT/HCPCS: 99212; G0463

== ENCOUNTER 2025-04-23 13:22 | Outpatient (POV) | payer OTHER, SELFPAY ==
--- OUTSIDE RECORDS SUMMARY | 2024-09-05 07:29 | XMS_ITS | Continuity of Care Document ---
Author Organization [facility] Address [address] [place] [address] Phone Care Team Providers Care Jawbone Puller Name Role Phone Bailey Alberto MD Unavailable Unavailable Allergies, Adverse Reactions, Alerts Substance Reaction Status Criticality Beta-Blockers (Beta-Adrenerg ic Blocking Agts) Stroke-like Symptoms(severe) Active No Informat ion Medications Medication Instructions Dosage Effective Dates (start - stop) Status Comments rosuvastatin 5 mg tablet take 2 tablet by oral route every day 10 MG - Active carvedilol 3.125 mg tablet take 1 tablet by oral route 2 times every day with food 3.125 MG - Active furosemide 80 mg tablet take 1 tablet by oral route every day 80 MG - Active Co Q-10 10 mg capsule take 1 by oral rou te every day 1 - Active B Complex 1 (with folic acid) 0.4 mg tablet take 1 tablet by oral route every day 1 tablet - Active magnesium phosphate (bulk) powder - Active potassium chloride ER 8 mEq tablet,extended release take 2 tablet by oral route 2 times every day with food 16 MEQ - Active Vazalore 81 mg capsule take 1 capsule by oral route every day 1 capsule - Active losartan 25 mg tablet take 1 tablet by o ral route every day 25 MG - Active Vascepa 0.5 gram capsule take 4 capsule by oral route 2 times every day with food swallowing whole. Do not chew, open, dissolve and/or crush. 2 G - Active Jardiance 10 mg tablet take 1 tablet by oral route every day in the morning 10 MG - Active Ozempic 0.25 mg or 0.5 mg (2 mg/3 mL) subcutaneous pen injector inject (0.5MG) by subcutaneous route every week on the same day of each week 0.5 MG - Active Tylenol 325 mg tablet take 1 tablet by o ral route every 4 hours as needed 325 MG - Active Procedures Procedure Date Gonioscopy Bilateral OFFICE/OUTPATIENT VISIT, NEW Advance Directives Directive Yes / No Effective Date File Name No Information Encounters Encounter Description Practice Location Reason(s) For Visit Diagnoses Date Provider Providers Copied on Encounter [facility] , [address] [place], [place], [facility], [place] tel:[phone] [facility] No Information 4 Remy Bailey. [address] [place], [place], [id number] , [place]. tel:[phone] OFFICE/OUTPAT IENT VISIT, [facility] , [address] [place], [address], [place] tel:[phone] [facility] possible sub conj hemorrhage (chief complaint) Subconjunctival hemorrhage of right eyeAnatomical narrow angle, bilateral 4 Juanita Mayer. [address], [place], [id number] , [place]. tel:[phone] Referring Provider: Leyla Zepeda, [address] [place], [address] . tel:[phone] Family History Family Member Type Diagnosis Age At Onset Problem No family history of Cancer, unknown type Father Problem No history of Diabetes melli tus Problem No family history of Retinal disease Problem No family history of Glaucom a Problem No family history of Catarac ts Father Problem Hypertension Payers Payer name Insurance type Covered alliance party ID Authoriza tion(s) Medicare [place] RAUL [id number] Tom Youssef [facility] [place] [id number] Social History Type Description Quantity Date Captured Comments Alcohol Use Details Unknown Caffeine Use Details Unknown Tobacco Use Status No Information Smoking Status No Information Sex Male Chief Complaint And Reason For Visit No Information Reason For Referral Reason For Referral No Information Plan Of Treatment Date Type Action Status Goal Tobacco cessation counseling completed History Of Present Illness Encounter Date Complaint History Of Prese nt Illness possible sub conj hemorrhage The 73 year old patient presents for evaluation of possible sub conj hemorrhage in the right eye. Pt has had this for about 2 days, starting 05/05. Pt woke up like this, but has no changes in vision. Denies bleeding, discharge, flashes, floaters, curtains, and veils. Has not been seen elsewhere for issue.Pre Diabetic, does not take BS, A1C 8.1,controlled w Ozempic. Functional Status Date Functional Assessmen t No Information Instructions Date Instruction Additional Infor cayden Impression/Plan Assessments Type Assessment Date No Information Patient Care Teams Name Effective Dates (start - stop) Status Members No Information
--- OUTSIDE RECORDS SUMMARY | 2025-02-26 13:30 | XMS_ITS | Encounter Summary ---
Author Organization [facility] Address [address] [place] [address] Care Team Providers Care Retirement Village Manager Name Role Phone Yuliya Mcfarlane MD Primary Care Provider [phone] Reason for Referral * Physical Therapy (Routine) - Pending Review Specialty Diagnoses / Procedures Referred By Bong teague Referred To Contact Physical Therapy Diagnoses Achilles tendinitis of left lower extremity Milli's deformity, left Partial tear of left Achilles tendon, initial encounter Troy Caro MD [address] [place] [address] Phone: tel: fax: Referral ID Status Reason Start Date Expiration Date V isits Requested Visits Authorized [id number] Pending Review 02/26/2025 02/26/2026 1 1 Question Answer surgical procedure S/P Achilles Tendon Reconstruction with FHL Tendon Transfer Evaluate and Treat Yes Goals: Decrease pain and swelling, Increase function, Increase strength Additional instructions: Frequency and duration per therapist discretion Medical Necessity: Promote full function post operatively * Surgical (Routine) - Pending Review Specialty Diagnoses / Procedures Referred By Bong teague Referred To Contact Diagnoses Achilles tendinitis of left lower extremity Milli's deformity, left Partial tear of left Achilles tendon, initial encounter Procedures AMB OC SURGERY COMMUNICATION ORDER Troy Caro MD [address] [place] [id number] Phone: tel: fax: Referral ID Status Reason Start Date Expiration Date V isits Requested Visits Authorized [id number] Pending Review 02/26/2025 02/26/2026 1 1 Reason for Visit * Reason Comments Follow-up Follow-up Encounter Details Date Type Department Care Team (Late st Contact Info) Description 02/26/2025 1:30 PM EDT Office Visit [facility] [address] [place] [id number] Troy Caro MD [address] [place] [id number] Achilles tendinitis of left lower extremity (Primary Dx); Milli's deformity, left; Partial tear of left Achilles tendon, initial encounter Social History Tobacco Use Types Packs/Day Years Used Date Smoking Tobacco: Former Cigarettes Q uit: 1997 Passive Smoke Exposure: Past Smokeless Tobacco: Never Alcohol Use Standard Drinks/Week Comments Not Asked 0 (1 standard drink = 0.6 oz pur e alcohol) 6 beers/week PHQ-2 Answer Date Recorded PHQ-2 Total Score 0 04/16/2024 Sexually Active Control Partners Comments Not Currently Sex and Gender Information Value Date Recorded Sex Assigned at Not on file Legal Sex Male 1:19 PM EDT Gender Identity Not on file Sexual Orientation Not on file documented as of this encounter Progress Notes * Troy Caro MD - 02/26/2025 1:30 PM EDT Images from the original note were not included. Pablito Caro MD Foot and Ankle Surgery and Sports Medicine [facility] Subjective: 02/26/2025 Sharad Campbell 74 y.o. male. HPI: History of Present Illness The patient presents for evaluation of left heel pain. He reports a persistent level of discomfort in his left heel, which has remained unchanged over thepast 2 months. He experiences constant pain at the back of his heel, which significantly impacts his daily activities. He has been engaging in therapeutic exercises, which provide temporary relief. He has a history of bypass surgery on his other leg. He had a consultation with his registered nurse maternal child 2 days ago, who expressed no objections to the proposed surgical intervention. Supplemental Information He has been using Kerasal for toe fungus. SOCIAL HISTORY Occupations: Retired Objective: PHYSICAL EXAMINATION: General: Well appearing with appropriate affect. Neuro: Alert and oriented to person, place, and time. Normal neurosensory response to touch. Musculoskeletal: Physical Exam - Cardiovascular: Left palpable 1+ DP and PT pulses, capillary refill of the toes is intact - Integumentary: The skin in the posterior heel is supple and soft - Musculoskeletal: - Left posterior heel: Swollen at the Achilles tendon insertion with tenderness at the Achilles tendon insertion, slight callus in the distal posterior heel Radiology/Laboratory Results: Results - Imaging: - X-ray of the left ankle: Severe calcification of the Achilles tendon insertion and degenerative Milli's deformity of the calcaneus Assessment and Plan: Assessment & Plan 1. 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 The procedure has a high success rate with a recovery period of 3 to 6 months. Cardiac clearance is required to discontinue Eliquis and aspirin 3 days preoperatively. Preoperative maintenance includes consistent gentle stretching, strengthening exercises, and calf raises learned in therapy. Additionally, applying lotion to the back of the heel is essential to ensure the skin is in optimal condition for surgery. Postoperative care involves diligent adherence to instructions, including elevation and minimizing activity to reduce swelling and promote incision healing. Monitoring will be conducted to minimize the risk of wound problems due to circulation issues. Cardiac clearance will be sought, and surgery is planned for 07/2025. Report any changes in pain levels. Follow-up: Surgery planned for 07/2025. Informed consent was obtained for left Achilles tendon reconstruction with FHL tendon transfer and excision Milli's deformity calcaneus. The risks, benefits, and alternatives of that procedure, the postoperative protocol, and the short term and long-term expectations were explained to the patient and/or patient guardian in detail. This discussion included the possible results of not having this intervention performed and the benefits and risks of these alternatives. If a non-autologous graft is planned, I have additionally discussed the risks, benefits, and alternatives to the use of such grafts. I explained the great importanceof compliance with postoperative instructions. The patient and/or guardian was encouraged to ask questions and those questions were answered to their satisfaction. The patient and/or guardian verbalized understanding of the discussion. Troy Caro MD Foot and Ankle Surgeon Please note that this wine specialist was created using voice recognition software. Any errors are unintentional and may be due to voice recognition wine specialist. The provider informed the patient (or legal insurance service representative) on the use of the ambient listening artificial intelligence tool, [employer] to obtain consent to its use. It was explained that this AI tool processes the conversation to generate a clinical note with the expected benefit of improved accuracy with a goal of improving the encounter experience for the patient and provider.?The provider explained that the medical information captured by the AI tool would be protected by applicable privacy laws. The patient was given an opportunity to ask questions and opt out of proceeding with the use of the AI tool. After being informed of such information, the patient (or legal insurance service representative), and each individual in attendance with the patient, consented to the use of the AI tool. Troy Caro MD documented in this encounter Plan of Treatment Upcoming Encounters Date Type Department Care Team (Late st Contact Info) Description 07/22/2025 7:30 AM [facility] Hospital Encounter [facility] [address] [place] [id number] Troy Caro MD [address] [address] 07/22/2025 7:30 AM EST - 07/22/2025 8:20 AM [facility] Surgery [facility] [address] [place] [address] Troy Caro MD [address] [address] ACHILLES TENDON RECONSTRUCTION WITH FLEXOR HALLUCIS LONGUS TENDON TRANSFER AND EXCISION HAGLUNDS DEFORMITY CALCANEUS 07/30/2025 2:30 PM EST Appointment [facility] [address] [facility] [address] [place] [id number] January, Tamiko Kidd REEL FED PRINTER [address] [facility] [address] [address] [address] [place] [address] 07/30/2025 3:40 PM EST Office Visit [facility] [address] [facility] [address] [place] [address] JanuaryTamiko REEL FED PRINTER [address] [facility] [address] [address] [place] [address] 08/03/2025 1:30 PM EST Office Visit [facility] [address] [facility] [address] [place] [address] Aki Mckeon PA-C [address] [place] [address] 10/28/2025 2:45 PM EST Office Visit [facility] [address] [place], [place] [id number] Shelley, Jayne, DO [address] [place] [address] Scheduled Orders Name Type Priority Associated Diagnoses Orde r Schedule SURGICAL/PROCEDURE CASE REQUEST - [facility] Procedures Routine Achilles tendinitis of left lower extremity Milli's deformity, left Partial tear of left Achilles tendon, initial encounter Ordered: 02/26/2025 Scheduled Procedures Name Priority Associated Diagnoses Date/Ti me ACHILLES TENDON RECONSTRUCTION WITH FLEXOR HALLUCIS LONGUS TENDON TRANSFER AND EXCISION HAGLUNDS DEFORMITY CALCANEUS Achilles tendinitis of left lower extremity Milli's deformity, left Partial tear of left Achilles tendon, initial encounter 07/22/2025 7:30 AM EST Scheduled Referrals Name Type Priority Associated Diagnoses Orde r Schedule AMB REFERRAL TO PHYSICAL THERAPY Outpatient Referral Routine Achilles tendinitis of left lower extremity Milli's deformity, left Partial tear of left Achilles tendon, initial encounter Ordered: 02/26/2025 documented as of this encounter Goals Goal Patient Goal Type Associated Problems Recent Progress Patient-Stated? Author Blood Pressure < 140/90 Blood Pressure 155/49(2024 1:14 PM EDT) No Paty Fernandez CMA BMI (Calculated) < 30 General 35.8(04/13/20 11:41 AM EDT) No Paty Fernandez CMA Maintain a healthy diet, exercise regularly and maintain an ideal body weight General No Paty Fernandez CMA Stay Tobacco Free Lifestyle No Paty Fernandez CMA HEMOGLOBIN A1C < 7.0 Result Component 7.4( 2:00 PM EST) No Paty Fernandez CMA documented as of this encounter Visit Diagnoses Diagnosis Achilles tendinitis of left lower extremity- Primary Achilles bursitis or tendinitis Milli's deformity, left Partial tear of left Achilles tendon, initial encounter Achilles tendinitis of left lower extremity Achilles bursitis or tendinitis Milli's deformity, left Partial tear of left Achilles tendon Achilles tendinitis of left lower extremity Achilles bursitis or tendinitis Milli's deformity, left Partial tear of left Achilles tendon, initial encounter documented in this encounter Orders Nursing Count Last Ordered Date First Orde red Date AMB OC SURGERY COMMUNICATION ORDER 1 2024 documented in this encounter Additional Health Concerns Assessment Noted Time A fall risk assessment has been complete d for the patient 06/19/2024 4:06 PM EDT documented as of this encounter Care Teams Retirement Village Manager Relationship Specialty Start Date End Date Yuliya Mcfarlane MD [address] [place] [address] PCP - General Internal Medicine 10/02/22 documented as of this encounter
--- OUTSIDE RECORDS SUMMARY | 2025-04-13 11:20 | XMS_ITS | Encounter Summary ---
Author Organization [place] [address] Care Team Providers Care Television Director Name Role Phone Yuliya Mcfarlane MD Primary Care Provider [phone] Reason for Referral * Surgical (Routine) - Authorization Not Needed Specialty Diagnoses / Procedures Referred By Contact Referred To Contact Gastroenterology Diagnoses Chronic anticoagulation Esophageal dysphagia Procedures ESOPHAGOGASTRODUODENOSCOPY (EGD) OH ESOPHAGOGASTRODUODENOSCOPY TRANSORAL DIAGNOSTIC OH DILATION ESOPH UNGUIDED SOUND/BOUGIE 1/MULT PASS OH EGD INSERT GUIDE WIRE DILATOR PASSAGE ESOPHAGUS OH EGD BALLOON DILATION ESOPHAGUS <30 MM DIAM OH COLSC FLX W/RMVL OF TUMOR POLYP LESION SNARE TQ Orestes Scott MD [address] [place] [address] Phone: tel:[phone] fax:[phone] Referral ID Status Reason Start Date Expiration Date Visits Requested Visits Authorized [id number] Authorization Not Needed 01/19/2025 01/19/2026 1 1 * Surgical (Routine) - Pending Review Specialty Diagnoses / Procedures Referred By Contac t Referred To Contact Gastroenterology Diagnoses Chronic anticoagulation Screening for colon cancer Procedures COLONOSCOPY OH COLORECTAL SCRN; HI RISK IND OH COLONOSCOPY FLX W/ENDOSCOPIC MUCOSAL RESECTION Orestes Scott MD [address] [place] [address] Phone: tel: fax: Referral ID Status Reason Start Date Expiration Date V isits Requested Visits Authorized [id number] Pending Review 01/19/2025 01/19/2026 1 1 Reason for Visit * Surgical (Routine) - Authorization Not Needed Specialty Diagnoses / Procedures Referred By Contact Referred To Contact Gastroenterology Diagnoses Chronic anticoagulation Esophageal dysphagia Procedures ESOPHAGOGASTRODUODENOSCOPY (EGD) OH ESOPHAGOGASTRODUODENOSCOPY TRANSORAL DIAGNOSTIC OH DILATION ESOPH UNGUIDED SOUND/BOUGIE 1/MULT PASS OH EGD INSERT GUIDE WIRE DILATOR PASSAGE ESOPHAGUS OH EGD BALLOON DILATION ESOPHAGUS <30 MM DIAM OH COLSC FLX W/RMVL OF TUMOR POLYP LESION SNARE TQ Orestes Scott MD [address] [place] [address] Phone: tel: fax: Referral ID Status Reason Start Date Expiration Date Visits Requested Visits Authorized [id number] Authorization Not Needed 01/19/2025 01/19/2026 1 1 Encounter Details Date Type Department Care Team (Latest Contact Info) Description 04/13/2025 11:20 AM EDT - 04/13/2025 11:59 PM EDT [facility] [place] [address] Orestes Scott MD [address] [place] [address] Jorge Calderon DO [address] [place] [address] Mercedez Del Rosario CRNA [address] [place], [place] [id number] Camille Cole RN Whalen, Amber Marie, RN Jones, Melissa, RN Chronic anticoagulation; Screening for colon cancer; Esophageal dysphagia Discharge Disposition: Home or Self Care Social History Tobacco Use Types Packs/Day Years [...] on file documented as of this encounter Last Filed Vital Signs Vital Sign Reading Time Taken Comments Blood Pressure 155/49 04/13/2025 1:14 PM EDT Pulse 50 04/13/2025 1:14 PM EDT Temperature 36.2 C (97.2 F) 04/13/2025 12:45 PM EDT Respiratory Rate 16 04/13/2025 1:14 PM EDT Oxygen Saturation 100% 04/13/2025 1:14 PM EDT Inhaled Oxygen Concentration - - Weight 113 kg (249 lb 1.6 oz) 04/13/2025 11:41 A M EDT Height 177.8 cm (5' 10 ) 04/13/2025 11:41 AM EDT Body Mass Index 35.74 04/13/2025 11:41 AM EDT documented in this encounter Discharge Instructions * Discharge Instructions* Denise Saini RN - 04/13/2025 11:50 AM EDT Images from the original note were not included. [facility] Discharge Instructions - Following Endoscopy A responsible adult, 18 years or older must be in attendance until the next A.M. Rest quietly today. May resume usual diet. Do not drive or operate any machinery until the next A.M., or as instructed. No alcoholic beverages for 24 hours. Do not make any legal or important decisions for the next 24 hours. Call the physician???s office for a follow-up visit or as needed. Patient discharged to the care of [facility]. ADDITIONAL INSTRUCTIONS: Call Dr. Scott at [phone] if the following occurs: Colonoscopy: Severe abdominal pains and swelling (mild abdominal cramps and gas pains can be expected), nausea and vomiting, rectal bleeding (with biopsy or polyps a small amount of blood can be expected), body temp. over 101 degrees, chills. EGD: Abdominal pains, cramps, swelling, chest pains, difficulty in swallowing, chills, coughing blood, severe sore throat, or body temp. over 101 degrees. Esophageal Dilation: Abdominal pains, cramps, swelling, chest pains, difficulty in swallowing, chills, coughing blood, severe sore throat, or body temp. over 101 degrees. Medications Reviewed No Changes Copy of Discharge Medication Instruction Sheet Given +++++++++++++++++++++++++++++++++++++++++++++++++++++++++++++++++++ [facility] Discharge Instructions - Following Anesthesia We appreciate the opportunity to care for you today! Here are a few reminders as you head home: A responsible adult, 18 years or older must be in attendance until tomorrow morning. Rest quietly today. May resume usual diet as tolerated or as directed by your surgeon. Do not drive or operate any machinery until tomorrow morning or as instructed. Do not make any legal or important decisions for the next 24 hours. Do not drink alcoholic beverages or take sleeping pills for 24 hours unless otherwise directed. If you have questions or concerns regarding your anesthesia experience, please call our office at . Get Well Soon! [facility] +++++++++++++++++++++++++++++++++++++++++++++++++++++++++++++++++++ * Attachments The following attachments cannot be sent through Care Everywhere. * How to use an incentive spirometer (Taiwanese) documented in this encounter Medications at Time of Discharge ACCU-CHEK GUIDE ME GLUCOSE MTR Misc MiscIndications:Typ e 2 diabetes mellitus with diabetic peripheral angiopathy without gangrene, without long-term current use of insulin (HCC) USE DIRECTED 2 [facility] Strip[facility]Ty pe 2 diabetes mellitus with diabetic peripheral angiopathy without gangrene, without long-term current use of insulin (HCC) USE DIRECTED TWICE DAILY 2 ACCU-CHEK SOFTCLIX LANCETS Misc MiscIndications:Typ e 2 diabetes mellitus with diabetic peripheral angiopathy without gangrene, without long-term current use of insulin (HCC) USE DIRECTED TWICE DAILY 2 aspirin (ASPIRIN) 81 mg Oral Tablet, Chewable Take 1 Tablet by mouth daily. 30 Tablet 3 1 B Complex-Folic Acid (B COMPLEX 1, WITH FOLIC ACID,) 0.4 mg Oral Tablet Take 1 Tablet by mouth daily. carvediloL (COREG) 3.125 mg Oral TabletIndications:E ssential hypertension Take 1 Tablet by mouth 2 times daily. 180 Tablet 2 5 ELIQUIS 5 mg Oral TabletIndications:F actor V Leiden Take 1 Tablet by mouth 2 times daily. 180 Tablet 2 5 empagliflozin (JARDIANCE) 25 mg Oral TabletIndications:T ype 2 diabetes mellitus with diabetic peripheral angiopathy without gangrene, without long-term current use of insulin (HCC) Take 1 Tablet by mouth daily. 90 Tablet 1 5 fUROsemide (LASIX) 80 mg Oral TabletIndications:E ssential hypertension Take 1 Tablet by mouth daily. 90 Tablet 2 5 gabapentin (NEURONTIN) 100 mg Oral CapsuleIndications: Type 2 diabetes mellitus with diabetic peripheral angiopathy without gangrene, without long-term current use of insulin (HCC),Sleep difficulties Take 1 Capsule by mouth 2 times daily. 90 Capsule 5 lidocaine (LIDODERM) 5 % Top Adhesive Patch, MedicatedIndication s:Right hip pain,Greater trochanteric bursitis of right hip Place 1 Patch onto the skin every 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 30 Tablet 3 3 olmesartan (BENICAR) 5 mg Oral TabletIndications:E ssential hypertension Take 1 Tablet by mouth daily. 90 Tablet 2 5 omeprazole (PRILOSEC) 20 mg Oral Capsule, Delayed Release(E.C.) Take 1 Capsule by mouth 2 times daily (before meals). 120 Capsule 3 5 rosuvastatin (CRESTOR) 40 mg Oral TabletIndications:H yperlipidemia, unspecified hyperlipidemia type Take 1 Tablet by mouth daily. 90 Tablet 2 5 semaglutide (OZEMPIC) 1 mg/dose (4 mg/3 mL) SubQ Pen InjectorIndications :Type 2 diabetes mellitus with diabetic peripheral angiopathy without gangrene, without long-term current use of insulin (HCC) Subcutaneous (Inject under the skin) 1 mg once a week. 9 mL 1 5 sodium,potassium,ma g sulfates 17.5-3.13-1.6 gram Oral Recon Soln Take 6 oz by mouth 2 times daily. SUPREP: Take as prescribed by doctor's office 354 mL 5 ubrogepant (UBRELVY) 100 mg Oral TabletIndications:O ther migraine without status migrainosus, not intractable Take 1 Tablet by mouth as needed for Migraine. May repeat dose in 2 hours one time up to a maximum of 200mg per 24 hours 16 Tablet 1 4 VASCEPA 1 gram Oral CapsuleIndications: Coronary artery disease involving coronary bypass graft of chickaloon heart with angina pectoris Take 1 Capsule by mouth 2 times daily. 180 Capsule 1 5 documented as of this encounter Ordered Prescriptions Prescription Sig Dispense Quantity Refills Last Filled Start Date End Date omeprazole (PRILOSEC) 20 mg Oral Capsule, Delayed Release(E.C.) Take 1 Capsule by mouth 2 times daily (before meals). 120 Capsule 3 04/13/2025 documented in this encounter Discharge Disposition Disposition Code Departure Means Destination Home or Self Care documented in this encounter H&P Notes * Orestes Scott MD - 04/13/2025 12:00 PM EDT [facility] Gastroenterology Outpatient Pre-Procedural History and Physical Primary Care Physician: Yuliya Mcfarlane MD Pre-Procedural Diagnosis: screening for colon cancer, dysphagia Indication(s) For Procedure: same Procedure Planned: Colonoscopy --screening, Esophagogastroduodenoscopy --diagnostic, with esophageal dilation HISTORY OF PRESENT ILLNESS: Sharad Campbell is a 74 y.o. male who has a past medical history of AAA (abdominal aortic aneurysm),DVT (deep venous thrombosis) (HCC), Essential (primary) hypertension, and PAD (peripheral artery disease). who presents for the above procedure. Patient is on anticoagulation which has been held. Past Medical History: Diagnosis Date AAA (abdominal aortic aneurysm) DVT (deep venous thrombosis) (HCC) Essential (primary) hypertension PAD (peripheral artery disease) Past Surgical History: Procedure Laterality Date CARDIAC SURGERY 2009 CARPAL TUNNEL RELEASE bilteral wrists CORONARY ANGIOPLASTY WITH STENT PLACEMENT Medications: Current Outpatient Medications on File Prior to Encounter Medication Sig Dispense Refill ACCU-CHEK GUIDE ME GLUCOSE MTR Misc Misc USE DIRECTED ACCU-CHEK GUIDE TEST STRIPS Misc Strip USE DIRECTED TWICE DAILY ACCU-CHEK SOFTCLIX LANCETS Misc Misc USE DIRECTED TWICE DAILY aspirin (ASPIRIN) 81 mg Oral Tablet, Chewable Take 1 Tablet by mouth daily. 30 Tablet 3 B Complex-Folic Acid (B COMPLEX 1, WITH FOLIC ACID,) 0.4 mg Oral Tablet Take 1 Tablet by mouth daily. carvediloL (COREG) 3.125 mg Oral Tablet Take 1 Tablet by mouth 2 times daily. 180 Tablet 2 ELIQUIS 5 mg Oral Tablet Take 1 Tablet by mouth 2 times daily. 180 Tablet 2 empagliflozin (JARDIANCE) 25 mg Oral Tablet Take 1 Tablet by mouth daily. 90 Tablet 1 fUROsemide (LASIX) 80 mg Oral Tablet Take 1 Tablet by mouth daily. 90 Tablet 2 gabapentin (NEURONTIN) 100 mg Oral Capsule Take 1 Capsule by mouth 2 times daily. 90 Capsule 0 lidocaine (LIDODERM) 5 % Top Adhesive Patch, Medicated Place 1 Patch onto the skin every [address] 1 patch onto the skin every 12 hours and off 12 hours between use 30 Patch 0 nitroGLYCERIN (NITROSTAT) 0.4 mg SL Tablet, Sublingual Place 1 Tablet under the tongue every 5 minutes as needed for Chest pain. 30 Tablet 3 olmesartan (BENICAR) 5 mg Oral Tablet Take 1 Tablet by mouth daily. 90 Tablet 2 rosuvastatin (CRESTOR) 40 mg Oral Tablet Take 1 Tablet by mouth daily. 90 Tablet 2 semaglutide (OZEMPIC) 1 mg/dose (4 mg/3 mL) SubQ Pen Injector Subcutaneous (Inject under the skin) 1 mg once a week. 9 mL 1 sodium,potassium,mag sulfates 17.5-3.13-1.6 gram Oral Recon Soln Take 6 oz by mouth 2 times daily. SUPREP: Take as prescribed by doctor's office 354 mL 0 ubrogepant (UBRELVY) 100 mg Oral Tablet Take 1 Tablet by mouth as needed for Migraine. May repeat dose in 2 hours one time up to a maximum of 200mg per 24 hours 16 Tablet 1 VASCEPA 1 gram Oral Capsule Take 1 Capsule by mouth 2 times daily. 180 Capsule 1 No current facility-administered medications on file prior to encounter. Allergies: Allergies Allergen Reactions Beta-Blockers (Beta-Adrenergic Blocking Agts) Shortness Of Breath Reports he was unable to speak, trouble breathing Influenza Virus Vaccine Trivalent Anaphylaxis Cymbalta [Duloxetine] Other (See Comments) [place] drunk, unstable, drowsy, nausea Family History Problem Relation Age of Onset Heart Disease Mother Heart Disease Father Heart Disease Sister Diabetes Brother Cancer Maternal Grandmother cancer unknown Social History Socioeconomic History Marital status: Spouse name: Not on file Number of children: Not on file Years of education: Not on file Highest education level: Not on file Occupational History Not on file Tobacco Use Smoking status: Former Current packs/day: 0.00 Types: Cigarettes Quit date: 1997 Years since quittin.6 Passive exposure: Past Smokeless tobacco: Never Vaping Use Vaping status: Never Used Substance and Sexual Activity Alcohol use: Not on file Comment: 6 beers/week Drug use: Not Currently Types: Marijuana Sexual activity: Not Currently Other Topics Concern Not on file Social History Narrative Not on file Social Drivers of Health Financial Resource Strain: Not on file Food Insecurity: Not on file Transportation Needs: Not on file Physical Activity: Not on file Stress: Not on file Social Connections: Not on file Intimate Partner Violence: Low Risk (03/23/2025) Received from [facility] Interpersonal Safety Feels UN-safe at Home or Work/School: Patient unable to answer (comment required) Feels Unsafe: Not on file Physical Signs of Abuse Present: no Housing Stability: Not on file PHYSICAL EXAM: Vitals: There were no vitals taken for this visit. CONSTITUTIONAL: No apparent distress, appears stated age HEENT: Atraumatic/normocephalic, extra-ocular muscles intact, no scleral icterus, b/l ears without defect, adequate hearing, b/l nares patent, moist mucus membranes, full range of motion of neck CARDIOVASCULAR: Regular rate and rhythm, no murmurs/rugs/gallops, normal S1 and S2 ausculated RESPIRATORY: No increased work of breathing, clear to auscultation bilaterally, no wheezes/rales/ronchi GI: soft, non-distended, non-tender to palpation, +bowel sounds, no rebound/guarding, MUSCULOSKELETAL: No redness, warmth, or swelling of the joints. Range of motion normal. NEUROLOGIC: Awake, alert, cooperative, CN II-XII grossly intact, no seizures/tremors noted, no asterixis elicited PSYCHIATRIC: Normal affect, pleasant mood DATA: Lab Results Component Value Date WBC 9.7 10/13/2024 HGB 17.7 (H) 10/13/2024 HCT 52.9 (H) 10/13/2024 PLT 210 10/13/2024 CHOLESTEROL 115 04/25/2024 TRIG 118 04/25/2024 HDL 36 (L) 04/25/2024 LDLCALC 58 04/25/2024 ALT 36 10/13/2024 AST 28 10/13/2024 NA 140 10/13/2024 K 4.8 10/13/2024 CL 101 10/13/2024 CALCIUM 9.6 10/13/2024 BUN 21 10/13/2024 CREATININE 1.09 10/13/2024 GFRCKDEPI 72 10/13/2024 CO2 28 10/13/2024 INR 1.18 (H) 04/18/2023 GLU 167 (H) 10/13/2024 HGBA1C 7.4 (H) 10/13/2024 TSHREFLEX 2.960 10/13/2024 Lab Results Component Value Date INR 1.18 (H) 04/18/2023 Last Oral Intake: Yesterday Previous Anesthesia Reaction: no Pre-Procedure Assessment: Risks, benefits, potential complications (including but not limited to missed lesions, sedation, bleeding, perforation and or ) and alternatives were discussed with the patient or patient's legally authorized sales representative graphic art. The patient's pre-procedural physical assessment indicates that the patient is suitable for and agrees to the planned sedation and procedure. Cardiovascular and Vital signs Stable: yes Adequate/Patient Oral Airway yes ASA: 3 ASSESSMENT / PLAN: Sharad Campbell is a 74 y.o. male who presents for the above specified procedure. I attest that the patient/patient sales representative graphic art has been counseled as to the potential benefits, risks, and side effects to the planned surgical treatment, including the likelihood of success and potential problems that might occur during recuperation. The patient/patient sales representative graphic art has also been counseled as to the alternatives to this intervention, including possible results of not having this intervention performed and benefits and risks of these alternatives. The patient/patient sales representative graphic art has given their consent to proceed with this intervention after having their questions sufficiently answered. Orestes Scott MD [facility] Gastroenterology documented in this encounter Plan of Treatment Upcoming Encounters Date Type Department Care Team (Late st Contact Info) Description 07/22/2025 7:30 AM [facility] [address] [place] [address] Troy Caro MD [address] [address] 07/22/2025 7:30 AM EST - 07/22/2025 8:20 AM [facility] [address] [place] [id number] Troy Caro MD [address] [address] ACHILLES TENDON RECONSTRUCTION WITH FLEXOR HALLUCIS LONGUS TENDON TRANSFER AND EXCISION HAGLUNDS DEFORMITY CALCANEUS 07/30/2025 2:30 PM EST Appointment [facility] [address] [facility] [address] [place] [phone] JanuaryTamiko CHANGEOVER OPERATOR [address] [place] [address] [address] [place] [address] 07/30/2025 3:40 PM EST Office Visit [facility] [address] [facility] [address] [place] [phone] JanuaryTamiko CHANGEOVER OPERATOR [address] [facility] [address] [place] [address] 08/03/2025 1:30 PM EST Office Visit [facility] [address] [facility] [address] [place] [address] Aki Mckeon PA-C [address] [place] [address] 10/28/2025 2:45 PM EST Office Visit [facility] [address] [place], [place] [id number] Jayne Rosa, DO [address] [place] [address] Scheduled Procedures Name Priority Associated Diagnoses Date/Ti me ACHILLES TENDON RECONSTRUCTION WITH FLEXOR HALLUCIS LONGUS TENDON TRANSFER AND EXCISION HAGLUNDS DEFORMITY CALCANEUS Achilles tendinitis of left lower extremity Milli's deformity, left Partial tear of left Achilles tendon, initial encounter 07/22/2025 7:30 AM EST documented as of this encounter Goals Goal Patient Goal Type Associated Problems Recent Progress Patient-Stated? Author Blood Pressure < 140/90 Blood Pressure 155/49(2024 1:14 PM EDT) Paty Barone CMA BMI (Calculated) < 30 General 35.8(04/13/20 11:41 AM EDT) No Paty Fernadnez CMA Maintain a healthy diet, exercise regularly and maintain an ideal body weight General No Paty Fernandez CMA Stay Tobacco Free Lifestyle No FernandezPaty [facility] HEMOGLOBIN A1C < 7.0 Result Component 7.4( 2:00 PM EST) No Paty Fernandez CMA documented as of this encounter Procedures Procedure Name Priority Date/Time Associated Diagnosis Comments ESOPHAGOGASTRODUODENOSCOPY (EGD) Routine 04/13/2025 12:40 PM EDT Chronic anticoagulation Esophageal dysphagia COLONOSCOPY Routine 04/13/2025 12:40 PM EDT Chronic anticoagulation Screening for colon cancer PATHOLOGY TISSUE REQUEST Routine 025 12:25 PM EDT Chronic anticoagulation Screening for colon cancer Esophageal dysphagia GLUCOSE METER POC Routine 04/13/2025 11:46 AM EDT documented in this encounter Results * ESOPHAGOGASTRODUODENOSCOPY (EGD) (04/13/2025 12:40 PM EDT) Anatomical Region Laterality Modality Endoscopy Narrative 04/13/2025 12:48 PM EDT Table formatting from the original result was not included. Findings Mild grade A reflux esophagitis with mucosal breaks measuring less than 5 mm not continuous between folds, covering less than 75% of the circumference in the lower third of the esophagus Small sliding hiatal hernia (type I hiatal hernia), confirmed by retroflexion Dilated in the esophagus with Savary-Geneva dilator from 60 Fr starting size. Dilation caused bleeding and mucosal tears; post-dilation bleeding was minimal; post-dilation mucosal tears were superficial. Mucosal disruption at the GEJ Recommendation - Daily PPI - Okay to resume anticoagulation in 48 hours Pre-Procedure Diagnosis / Indication Esophageal dysphagia, Chronic anticoagulation Post-Procedure Diagnosis None Staff Staff Role Orestes Scott MD Performing Provider RONDA Santana CRNA, supervisor inspection room Nurse Camille Cole RN Mushroom Sorter Grader Jorge Calderon DO Anesthesiologist Medications See Anesthesia Record. Preprocedure A history and physical has been performed, and patient medication allergies have been reviewed. The patient's tolerance of previous anesthesia has been reviewed. The risks and benefits of the procedure and the sedation options and risks were discussed with the patient. All questions were answered and informed consent obtained. ASA 3 - Patient with severe systemic disease Details of the Procedure The patient underwent monitored anesthesia care, which was administered by an anesthesia professional. The patient's blood pressure, heart rate, level of consciousness, oxygen saturation, respirations, ECG and ETCO2 were monitored throughout the procedure. The scope was introduced through the mouth and advanced to the second part of the duodenum. Retroflexion was performed in the cardia. Prior to the procedure, the patient's H. Pylori status was unknown. The patient's estimated blood loss was minimal. The procedure was not difficult. The patient tolerated the procedure well. There were no apparent adverse events. Patient provided education and educated on specific discharge instructions. Patient educated on medications given during the procedure and new medications for discharge. Patient verbalizes understanding of discharge education. Patient stable and awaiting transport for discharge. Events Procedure Events Event Event Time ENDO SCOPE IN TIME 04/13/2025 12:15 PM ENDO SCOPE OUT TIME 04/13/2025 12:19 PM ENDO SCOPE IN TIME 04/13/2025 12:22 PM ENDO CECUM REACHED 04/13/2025 12:23 PM ENDO SCOPE OUT TIME 04/13/2025 12:35 PM Specimens ID Type Source Tests Collected by Time 1 : cecal poylp via cold snare Tissue Large Intestine, Cecum PATHOLOGY TISSUE REQUEST Orestes Scott MD 04/13/2025 1225 2 : transverse polyps via cold snare Tissue Large Intestine, Transverse Colon PATHOLOGY TISSUE REQUEST Orestes Scott MD 04/13/2025 1229 Anesthesia Event Time In Patient In - Proc. Room 12:08 PM Patient Out - Proc. Room 12:40 PM Orestes Scott MD ENDOSCOPY PROCEDURE ORDERABL ES Final Result * COLONOSCOPY (04/13/2025 12:40 PM EDT) Anatomical Region Laterality Modality Endoscopy Narrative 04/13/2025 12:49 PM EDT Table formatting from the original result was not included. Findings Two sessile and adenomatous-appearing polyps measuring 5-9 mm in the cecum; performed cold snare with complete en bloc removal and retrieved specimen Five sessile and adenomatous-appearing polyps measuring 5-9 mm in the transverse colon; performed cold snare with complete en bloc removal and retrieved specimen Recommendation Await pathology results - Repeat colonoscopy likely in 3 years - Okay to resume anticoagulation in 48 hours Pre-Procedure Diagnosis / Indication Chronic anticoagulation, Screening for colon cancer Post-Procedure Diagnosis None Staff Staff Role Orestes Scott MD Performing Provider Kendrick Young CRNA UNEMPLOYMENT BENEFITS CLAIMS TAKER Ninoska Ruiz RN Endoscopy Nurse Camille Cole RN Mushroom Sorter Grader Jorge Caldeorn DO Anesthesiologist Medications See Anesthesia Record. Preprocedure A history and physical has been performed, and patient medication allergies have been reviewed. The patient's tolerance of previous anesthesia has been reviewed. The risks and benefits of the procedure and the sedation options and risks were discussed with the patient. All questions were answered and informed consent obtained. ASA 3 - Patient with severe systemic disease Details of the Procedure The patient underwent monitored anesthesia care, which was administered by an anesthesia professional. The patient's blood pressure, heart rate, level of consciousness, oxygen saturation, respirations, ECG and ETCO2 were monitored throughout the procedure. A digital rectal exam was performed. The scope was introduced through the anus and advanced to the cecum. Retroflexion was performed in the rectum. Bowel prep was adequate. The patient's estimated blood loss was minimal. The procedure was not difficult. The patient tolerated the procedure well. There were no apparent adverse events. Patient provided education and educated on specific discharge instructions. Patient educated on medications given during the procedure and new medications for discharge. Patient verbalizes understanding of discharge education. Patient stable and awaiting transport for discharge. Events Procedure Events Event Event Time ENDO SCOPE IN TIME 04/13/2025 12:15 PM ENDO SCOPE OUT TIME 04/13/2025 12:19 PM ENDO SCOPE IN TIME 04/13/2025 12:22 PM ENDO CECUM REACHED 04/13/2025 12:23 PM ENDO SCOPE OUT TIME 04/13/2025 12:35 PM Specimens ID Type Source Tests Collected by Time 1 : cecal poylp via cold snare Tissue Large Intestine, Cecum PATHOLOGY TISSUE REQUEST Orestes Scott MD 04/13/2025 6260 2 : transverse polyps via cold snare Tissue Large Intestine, Transverse Colon PATHOLOGY TISSUE REQUEST Orestes Scott MD 04/13/2025 1227 Anesthesia Event Time In Patient In - Proc. Room 12:08 PM Patient Out - Proc. Room 12:40 PM us Orestes Scott MD ENDOSCOPY PROCEDURE ORDERABL ES Final Result * PATHOLOGY TISSUE REQUEST (04/13/2025 12:25 PM EDT) CASE REPORT Surgical Pathology Case: [id number] Authorizing Provider: Orestes Scott MD Collected: 04/13/2025 1225 Ordering Location: [facility] Received: 04/13/2025 1411 Pathologist: Emma So MD Specimens: A) - Large Intestine, Cecum, cecal poylp via cold snare B) - Large Intestine, Transverse Colon, transverse polyps via cold snare 04/15/2025 8:43 AM EDT [facility] FINAL DIAGNOSIS A. Cecal polyp, biopsy: - Tubular adenoma. - Negative for high grade dysplasia or malignancy. B. Transverse colon polyps, biopsy: - This case requires additional levels. Once additional levels are reviewed the final diagnosis will occur in the addendum section. 04/15/2025 8:43 AM EDT [facility] at 0657 EDT ADDENDUM B. Transverse colon polyps, biopsy: - Tubular adenoma. - Negative for high grade dysplasia or malignancy. Deeper levels were performed in this case. 04/15/2025 8:43 AM EDT [facility] Addendum electronically signed by Emma So MD on 04/15/2025 at 0843 EDT GROSS DESCRIPTION A. Received in formalin and labeled with the patient's name, medical record number, and cecal polyp are 4 fragments of bullock tissue ranging from 0.3 to 0.6 cm in greatest dimension. Entirely submitted in A1. Nadir Duran 04/14/2025 B. Received in formalin and labeled with the patient's name, medical record number, and transverse polyps are multiple fragments of bullock tissue ranging from 0.3 to 1.4 cm in greatest dimension. Entirely submitted in B1. Nadir Duran 04/14/2025 04/15/2025 8:43 AM EDT [facility] DES[facility] The microscopic examination may have been rendered in whole, or in part, by analyzing high-resolutio n digital images (whole slide images) on the [employer] Digital Pathology platform validated at [facility]. 04/15/2025 8:43 AM EDT [facility] EMBEDDED IMAGES 04/15/2025 8:43 AM EDT [facility] Tissue CECUM STRUCTURE / Unknown 04/13/2025 12:25 PM EDT 04/13/2025 2:11 PM EDT Tissue specimen (specimen) TRANSVERSE COLON STRUCTURE / Unknown 04/13/2025 12:29 PM EDT 04/13/2025 2:11 PM EDT us Orestes Scott MD PATHOLOGY ORDERABLES Edited Result - Final [address] [address] * (ABNORMAL) GLUCOSE METER POC (04/13/2025 11:46 AM EDT) Glucose Meter POC 162(H) 70 - 100 mg/dL 04/13/2025 11:51 AM EDT [facility] Sample Type Capillary 04/13/2025 11:51 AM EDT [facility] Patient Status Non-Critical Patient 04/13/2025 11:51 AM EDT [facility] Blood BLOOD SPECIMEN / Unknown 04/13/2025 11:46 AM EDT 04/13/2025 11:51 AM EDT us Orestes Scott MD POINT OF CARE TEST ORDERABLE S Final Result [facility] [address] [place] [address] documented in this encounter Visit Diagnoses Diagnosis Achilles tendinitis of left lower extremity Achilles bursitis or tendinitis Milli's deformity, left Partial tear of left Achilles tendon Chronic anticoagulation Encounter for long-term (current) use of anticoagulants Screening for colon cancer Special screening for malignant neoplasms, colon Esophageal dysphagia Dysphagia, pharyngoesophageal phase Achilles tendinitis of left lower extremity Achilles bursitis or tendinitis Milli's deformity, left Partial tear of left Achilles tendon, initial encounter documented in this encounter Administered Medications Inactive Administered Medications - up to 1 most recent administrations Medication Order MAR Action Action Date Dose Rate Site insulin aspart U-100 (NovoLOG) injection 1-6 Units 1-6 Units, Subcutaneous, PREPROCEDURE, 1 dose, Starting on Sun04/12/25 at 0920, Until Sun04/13/25 at 1159, Other, Pre-op Hyperglycemia Correction, Type 2 DM weighing at least 80kg: FSBS Correction 121-149 1 unit 150-199 2 units 200-250 4 units 251-300 6 units 301-350 8 units 351-400 10 units Greater than 400___notify anesthesiologist Waste Sort Code = BLACK RCRA Hazardous Waste Container, Pre-op (Holding/SDS Meds) Given 04/13/2025 11:59 AM EDT 2 Units Right Arm lactated ringers infusion Intravenous, at 50 mL/hr, PREPROCEDURE CONTINUOUS, Starting on Sun04/12/25 at 0920, Until Sun04/13/25 at 2119, To be given in SDS/Pre-op Holding Area, Pre-op (Holding/SDS Meds) IV Restarted 04/13/2025 12:10 PM EDT documented in this encounter Orders Medications Ordered That Derick ht Not Have Been Administered Count Last Ordered Date First Ordered Date droPERidol (INAPSINE) injection 0.625 mg 1 04/13/2025 ondansetron (ZOFRAN) injection 4 mg 1 04/13 ondansetron (ZOFRAN-ODT) dis integrating tablet 8 mg 1 04/13/2025 Discharge Count Last Ordered Date First Orde red Date DISCHARGE PATIENT 1 04/13/2025 documented in this encounter Additional Health Concerns Assessment Noted Time A fall risk assessment has been complete d for the patient 06/19/2024 4:06 PM EDT documented as of this encounter Care Teams Television Director Relationship Specialty Start Date End Date Yuliya Mcfarlane MD [address] [place] [address] PCP - General Internal Medicine 10/02/22 documented as of this encounter
--- OUTSIDE RECORDS SUMMARY | 2025-04-13 12:09 | XMS_ITS | Encounter Summary ---
Author Organization [place] [address] Care Team Providers Care Forge Press Operator Name Role Phone Yuliya Mcfarlane MD Primary Care Provider [phone] Encounter Details Date Type Department Care Team (Late st Contact Info) Description 04/13/2025 12:09 PM EDT Anesthesia Event [facility] [place], [place] [id number] Jorge Calderon, [address] [place] [id number] Jana Bryant APRN [address] [place] [address] Anesthesia Record Procedure Summary Procedure Name Responsible Anesthesiologist Anesthesia Start Time Anesthesia Stop Time COLONOSCOPY Jorge Calderon DO 04/13/25 1209 08/0 01/02 1243 Events Date Time Event Comment 04/13/2025 1150 1156 AN Equip Check 1209 An Start 1210 An Start Data 1210 Start Supplemental O2 Disabl es direct capture of O2 [ANES AGENT O2 [6749449538] and Air flow [ANES AGENT AIR [[id number]] variables into chart. 1213 Immediate Pre Anesthetic Ass es 1213 Anesthesia Ready 1215 Time out 1215 Incision 1241 an stop data 1243 An Stop 1243 Handoff I completed my SBAR handoff to the receiving nurse which has included the followin. Identification of the patient, family, or patient surrogate 2. Identification of the responsible practitioner 3. Pertinent medical history 4. Surgical procedure and reason for procedure 5. Intraoperative anesthetic management 6. All current lines, drains and respiratory support. 7. Outstanding follow up orders (X-rays, consults etc) 8. Expectations/Plans for the early post-procedure period 9. Opportunity for questions and acknowledgement of understanding from the receiving PACU/ICU hourly team members Meds Name Total propofol (DIPRIVAN) injection 50 mg propofol (DIPRIVAN) infusion 10 mg/mL 40 1,150 mcg lidocaine injection 1% 100 mg lactated ringers infusion 500 mL * Agents Name O2 N2O Air * Blood No blood administrations on file. Lines, Drains, and Airways Type Details Placement Removal Peripheral IV 04/13/25; 1152; 22; Posterior, Right; Hand; Camille RN; 1; 04/13/25; 1318; Therapy completed; Catheter intact, Dressing applied, No Complications 04/13/25 1152 by Staff, Cecile Soto RN 04/13/25 1318 by Staff, Cecile Soto RN documented in this encounter Social History Tobacco Use Types Packs/Day [...] on file documented as of this encounter OR Notes * Anesthesia Postprocedure Evaluation - Jorge Calderon DO - 04/13/2025 2:22 PM EDT Post-Anesthesia Evaluation Note Patient Name: Sharad Campbell Patient Date: April 13, 2025 Post-Anesthesia Evaluation Patient Location: [facility] Post op vitals: stable Difficult airway: no Nausea controlled: yes Level of consciousness: awake and alert Post anesthesia pain: adequate analgesia Airway patency: patent Respiratory status: room air and spontaneous ventilation Cardiovascular status: stable and BP within 20% of baseline Hydration status: euvolemic Temperature: Normothermia Perioperative complications: NONE Vitals Value Taken Time BP 155/49 04/13/25 13:14 Resp 16 04/13/25 13:14 SpO2 100 % 04/13/25 13:14 Temp 36.2 ??C (97.2 ??F) 04/13/25 12:45 Pulse 50 04/13/25 13:14 * Anesthesia Preprocedure Evaluation - Jorge Calderon DO - 04/13/2025 11:49 AM EDT Pre-Anesthesia Evaluation Note Patient Name: Sharad Campbell Sex: male Patient : 1950 Age: 74 y.o. Patient Date: April 13, 2025 Procedures: COLONOSCOPY ESOPHAGOGASTRODUODENOSCOPY ([facility]) Vitals: 04/13/25 1141 BP: 119/60 Pulse: 53 Resp: 16 Temp: 36.2 ??C (97.2 ??F) SpO2: 98% Anesthesia Evaluation Previous anesthesia. No history of anesthetic complications: Airway Mallampati: III TM distance: >3 FB Dental Pulmonary (+) History of tobacco use: former Physical exam: Comments: Clear to auscultation (-) no asthma, no sleep apnea, no URI cough sputum Cardiovascular Comments: Last cardiac follow up 02/2025 (+)Hypertension: Hyperlipidemia CAD/PR (2009 CABG, PCI prior): Coronary Stents and CABG CHF: Cardiomyopathy: Ischemic Valvular problems/murmurs (08/2023 Trace MR/TR): Peripheral arterial disease (AAA; 05/2024 BICA 1-39%; PVD): Carotid Disease Physical exam: Rhythm: regular Rate: normal Neuro/Psych (+) Headaches: migraine Peripheral neuropathy (-) seizures and no cerebrovascular disease GI/Hepatic/Renal (+)Dysphagia (-) no cirrhosis, no chronic kidney disease Endo/Other Comments: Factor V Leiden (+)GLP-1 / Weight loss med (ozempic): Weekly dosing Obese: Diabetes mellitus (10/2024 A1c 7.4): type 2 anticoagulation therapy DVT BROADBAND ENGINEER Additional Pre-evaluation comments 10/2024 CBC/CMP reviewed h/h 17.7/52.9 06/2024 Holter interpretation: Normal study 05/2024 Stress Conclusions * Normal left ventricular size. * The rest/stress volume ratio (Transient Ischemic Dilation) is normal. (Normal with exercise is <1.23 and with vasodilator is <1.37). * Post stress left ventricular ejection fraction is mildly reduced, 46 %. * Mild diffuse hypokinesis with paradoxical septal motion from prior CABG. * Possible small scar in apical lateral and mid inferolateral segments. * No evidence of ischemia. 08/2023 ECHO Conclusions * Left ventricular chamber dimension is normal. * Left ventricular function is mildly reduced with an estimated ejection fraction of 45% however endocardial definition is very poor. * Patient refused Definity contrast. * The left ventricular diastolic function is consistent with stage I diastolic dysfunction (normal left atrial pressure). * Estimated pulmonary artery systolic pressure is 21 mmHg. * The aortic root is mildly dilated at 4.1 cm. * The proximal ascending aorta is mildly dilated at 4.0 cm. Trace MR/TR Opioids Body mass index is 35.74 kg/m??. Anesthesia Plan ASA 3 Last solid intake: The patient has not eaten within the last 8 hours. Last clear liquid intake: The patient has not had clear liquids within the last 2 hours. Anesthesia Plan: MAC Induction: intravenous Monitors: STD Per Dr Rosa note on 02/19/2025 He is also not high risk for endoscopy and may proceed from cardiac standpoint. Informed consent Anesthetic plan and risks discussed with: patient and family. Chart Reviewed and patient examined documented in this encounter Miscellaneous Notes * PAT Pre Evaluation for Anesthesia - Jana Bryant APRN - 04/10/2025 11:34 AM EDT Pre-Anesthesia Evaluation Note Patient Name: Sharad Campbell Sex: male Patient : 1950 Age: 74 y.o. Patient Date: April 10, 2025 Procedures: COLONOSCOPY ESOPHAGOGASTRODUODENOSCOPY (EGD) Anesthesia Evaluation Previous anesthesia. Airway Dental Pulmonary (+) History of tobacco use: former Cardiovascular Comments: Last cardiac follow up 02/2025 (+)Hypertension: Hyperlipidemia CAD/PR (2009 CABG, PCI prior): Coronary Stents and CABG CHF: Cardiomyopathy: Ischemic Valvular problems/murmurs (08/2023 Trace MR/TR): Peripheral arterial disease (AAA; 05/2024 BICA 1-39%; PVD): Carotid Disease Neuro/Psych (+) Headaches: migraine Peripheral neuropathy GI/Hepatic/Renal (+)Dysphagia Endo/Other Comments: Factor V Leiden (+)GLP-1 / Weight loss med (ozempic): Weekly dosing Obese: Diabetes mellitus (10/2024 A1c 7.4): type 2 anticoagulation therapy DVT BROADBAND ENGINEER Additional Pre-evaluation comments 10/2024 CBC/CMP reviewed h/h 17.7/52.9 06/2024 Holter MD interpretation: Normal study 05/2024 Stress Conclusions * Normal left ventricular size. * The rest/stress volume ratio (Transient Ischemic Dilation) is normal. (Normal with exercise is <1.23 and with vasodilator is <1.37). * Post stress left ventricular ejection fraction is mildly reduced, 46 %. * Mild diffuse hypokinesis with paradoxical septal motion from prior CABG. * Possible small scar in apical lateral and mid inferolateral segments. * No evidence of ischemia. 08/2023 ECHO Conclusions * Left ventricular chamber dimension is normal. * Left ventricular function is mildly reduced with an estimated ejection fraction of 45% however endocardial definition is very poor. * Patient refused Definity contrast. * The left ventricular diastolic function is consistent with stage I diastolic dysfunction (normal left atrial pressure). * Estimated pulmonary artery systolic pressure is 21 mmHg. * The aortic root is mildly dilated at 4.1 cm. * The proximal ascending aorta is mildly dilated at 4.0 cm. Trace MR/TR Opioids There is no height or weight on file to calculate BMI. Anesthesia Plan Anesthesia Plan: MAC Per Dr Rosa note on 02/19/2025 He is also not high risk for endoscopy and may proceed from cardiac standpoint. Chart Reviewed documented in this encounter Plan of Treatment Upcoming Encounters Date Type Department Care Team (Late st Contact Info) Description 07/22/2025 7:30 AM EST Hospital Encounter [facility] [address] [place], [place] [id number] Troy Caro MD [address] [address] 07/22/2025 7:30 AM EST - 07/22/2025 8:20 AM EST [facility] [address] [place] [address] Troy Caro MD [address] [address] ACHILLES TENDON RECONSTRUCTION WITH FLEXOR HALLUCIS LONGUS TENDON TRANSFER AND EXCISION HAGLUNDS DEFORMITY CALCANEUS 07/30/2025 2:30 PM EST Appointment [facility] [address] [place] [address] [address] [place] [address] Tamiko Orta APRN [address] [place] [address] [address] BROU[address] [place] [address] 07/30/2025 3:40 PM EST Office Visit [facility] [address] [place] [address] [address] Orta [address] BROUSS[address] [place] [address] 08/03/2025 1:30 PM EST Office Visit [facility] [address] [address] Aki Mckeon PA-C [address] [place], [place] [address] [place] [address] 10/28/2025 2:45 PM EST Office Visit [facility] [place] [address] [place] [address] Shelley, Jayne, DO [address] [place] [address] Scheduled Procedures Name Priority Associated [...] documented as of this encounter Visit Diagnoses Not on filedocumented in this encounter Administered Medications Inactive Administered Medications - up to 1 most recent administrations Medication Order MAR Action Action Date Dose Rate Site lactated ringers infusion Intravenous, at 50 mL/hr, PREPROCEDURE CONTINUOUS, Starting on Sun04/12/25 at 0920, Until Sun04/13/25 at 2119, To be given in SDS/Pre-op Holding Area, Pre-op (Holding/SDS Meds) IV Restarted 04/13/2025 12:10 PM EDT lidocaine 1% 10 mg/mL (1 %) injection Intravenous, PRN (Anesthesia), Starting on Sun04/13/25 at 1213, Until Sun04/13/25 at 1243, Anesthesia Intra-op Given 04/13/2025 12:16 PM EDT 50 mg propofol (DIPRIVAN) infusion 10 mg/mL Intravenous, CONTINUOUS PRN, Starting on Sun04/13/25 at 1213, Until Sun04/13/25 at 1243, Anesthesia Intra-op Rate/Dose Change 04/13/2025 12:21 PM EDT 150 mcg/kg/min 101.7 mL/hr propofoL (DIPRIVAN) injection Intravenous, PRN (Anesthesia), Starting on Sun04/13/25 at 1213, Until Sun04/13/25 at 1243, Anesthesia Intra-op Given 04/13/2025 12:13 PM EDT 50 mg documented in this encounter Additional Health Concerns Assessment Noted Time A fall risk assessment has been complete d for the patient 06/19/2024 4:06 PM EDT documented as of this encounter Care Teams Forge Press Operator Relationship Specialty Start Date End Date Yuliya Mcfarlane MD [address] [place] [address] PCP - General Internal Medicine 10/02/22 documented as of this encounter
--- NOTE | 2025-04-23 13:37 | A.OFFVIS_ITS ---
[facility] Disclaimer: The information contained in this section may have been updated after the patient was seen, as this information can be updated by other users. Social History (Updated 06/13/22 @ 14:59 by Kendall Mederos CRNA) Smoking Status: Never smoker alcohol intake: never substance use type: prescription drug current occupational status: other Travel in the last 8 weeks?: None household members: other housing: house current occupational exposures/hazards: No caffeine: No Have you lived/traveled outside US in past 30 days?: No Contact w/someone who lives/traveled outside US past 30 days?: No Exposure to someone with infectious disease in past 14 days?: No Do you have a fever (greater than 100.4 F or 38 C)?: No Have you tested positive for COVID-19?: No Exposed to someone with COVID-19 in past 14 days?: No Do you have a sore throat?: No Do you have a cough?: No Do you have any weakness?: No Do you have any diarrhea?: No Are you experiencing any unusual bleeding?: No Do you have any muscle aches/pain?: No Do you have any abdominal pain?: No Are you experiencing loss of taste or smell?: No PM Subjective & Objective Subjective Subjective:: Patient is a pleasant 74-year-old male who presents today for his 3-month follow-up and medication refill. He denies any new falls or injuries. Patient is currently managed with tramadol 50 mg daily from our office. He denies any side effects. He does state that he is scheduled to have left ankle surgery coming up in July. He denies any other changes. His Carlos Manuel has been r eviewed and is appropriate. Review of Systems: General: No recent weight changes, no fever, no sleep disturbances Respiratory: No cough, no shortness of air, no recurring pulmonary infections Cardiovascular/peripheral vascular: No chest pain, no palpitations, no edema, no shortness of breath Gastrointestinal: No new onset incontinence, normal bowel movements reported Genitourinary: No new onset incontinence Musculoskeletal: Chronic back pain Psychiatric: [Normal mood/affect] Neurological: [Denies weakness in extremities], [denies balance issues] Pain at rest (0-10 scale): 4 Objective Objective:: Physical Exam: General: Alert and oriented x3, no acute distress, pleasant and cooperative Lungs: Respirations even and unlabored, symmetrical chest expansion Eyes: PERRL Musculoskeletal: Flexion and extension of lumbar [spine] somewhat guarded secondary to pain, [antalgic gait noted] Neurological: Speech clear, no gross sensory deficit Has patient had previous pain injection?: No Conservative treatment options previously tried: Home exercise plan Length of treatment: Longer than 12 weeks Meds Home Medications and Allergies Home Medications ?Medication ?Instructions ?Recorded ?Confirmed ?Type apixaban 5 mg tablet 5 mg PO DAILY Blood thinner 01/03/21 12/29/24 History empagliflozin 10 mg tablet 10 mg PO DAILY Diabetes 12/29/24 History furosemide 40 mg tablet 40 mg PO DAILY hyperlipidemi a 01/03/21 12/29/24 History icosapent ethyl 1 gram capsule 1 gm PO DAILY . 1 12/29/24 History rosuvastatin 10 mg tablet 10 mg PO DAILY hyperlipidemi a 01/03/21 12/29/24 History semaglutide 0.25 mg or 0.5 mg (2 5 mg * WEEKLY Diabete s 01/03/21 12/29/24 History mg/1.5 mL) subcutaneous pen injector acetaminophen 300 mg-codeine 30 mg 1 tab PO DAILY #30 tabs 06/23/24 12/29/24 Rx tablet tramadol 50 mg tablet 50 mg PO DAILY #90 tabs 12/10 10/04 Rx New Prescriptions to Start Prescriptions: Allergies Allergy/AdvReac Type Severity Reaction Status Date / Time Beta-Blockers AdvReac Unknown Verified 10/31/24 10:16 (Beta-Adrenergic Bloc allergy reaction Assessment and Plan *Assessment and plan (1) Lumbar radiculopathy: Status: Chronic Category: Medical Code(s): M54.16 - Radiculopathy, lumbar region (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 Patient will return to clinic in 3 months for reevaluation of symptoms and plan of care. Risks and benefits of the medication have been explained in detail to the patient. The patient does understand the risk of dependence on the medication when given over a prolonged period. Patient has been advised of risks of oversedation with the prescribed med ication. Narcan has been offered to the paitent in the event of oversedation. Patient has been advised that a family member should also be educated regarding administration of Narcan. The patient has been advised to consult with his/her primary care provider and pharmacist regarding drug-drug interaction of medications currently prescribed. Patient has been prescribed a controlled substance after being counseled on the medication, medication safety, and possible side effects. Opioid contract was reviewed and signed by the patient, and that they have agreed to all of the terms set forth by our compliance program. A UDS is needed to verify patient's compliance with our office pain contract. This is ordered based off specific treatments related to chronic pain with the potential to abuse certain medications. Patient has been instructed to contact the clinic with any concerns before the next appointment. Dr. Disla has reviewed this note and agrees with this plan of care. This note was dictated using voice recognition software and make contain errors or omissions.
--- OUTSIDE RECORDS SUMMARY | 2025-04-23 13:42 | XMS_ITS | Encounter Summary ---
Author Organization [place] [address] Care Team Providers Care City Controller Name Role Phone Yuliya Mcfarlane MD Primary Care Provider [phone] Reason for Visit * Reason Onset Date Comments Prior Authorization 04/20/2025 Renewal Ubre lvy Encounter Details Date Type Department Care Team (Late st Contact Info) Description 04/20/2025 Telephone SEP CV IM/PEDS [address] [facility] [address] [place] [address] Yuliya Mcfarlane MD [address] [place] [address] Prior Authorization (Renewal Ubrelvy) Social History Tobacco Use Types Packs/Day Years [...] on file documented as of this encounter Miscellaneous Notes * Telephone Encounter - Paty Fernandez CMA - 04/21/2025 11:06 AM EDT PA approved 01/20/25-04/20/26 * Telephone Encounter - Paty Fernandez CMA - 04/20/2025 4:04 PM EDT PA renewal Ubrelvy sent electronically documented in this encounter Plan of Treatment Upcoming Encounters Date Type Department Care Team (Late st Contact Info) Description 07/22/2025 7:30 AM EST Hospital Encounter [facility] [address] [place] [phone] Troy Caro MD [address] [id number] 07/22/2025 7:30 AM EST - 07/22/2025 8:20 AM EST Surgery [facility] [address] [place] [id number] Troy Caro MD [address] [address] ACHILLES TENDON RECONSTRUCTION WITH FLEXOR HALLUCIS LONGUS TENDON TRANSFER AND EXCISION HAGLUNDS DEFORMITY CALCANEUS 07/30/2025 2:30 PM EST Appointment [facility] [address] [place] [address] [address] [place] [address] Tamiko Orta APRN [address] [place] [address] [address] BROUSS[address] [place] [id number] 07/30/2025 3:40 PM EST Office Visit [facility] [address] [place] [phone] Tamiko Orta APRN [address] [place] [address] DR BROUSSARD [address] [place] [phone] 08/03/2025 1:30 PM EST Office Visit [facility] [address] [place] [address] Aki Mckeon PA-C [address] [place], [place] [id number] 10/28/2025 2:45 PM EST Office Visit [facility] [address] [address] Shelley, Kami, DO [address] [place] [address] Scheduled Procedures Name Priority Associated [...] < 30 General 35.8(04/13/20 11:41 AM EDT) Paty Barone CMA Maintain a healthy diet, exercise regularly and maintain an ideal body weight General No Paty Fernandez CMA Stay Tobacco Free Lifestyle No Paty Fernandez CMA HEMOGLOBIN A1C < 7.0 Result Component 7.4( 2:00 PM EST) Paty Barone CMA documented as of this encounter Visit Diagnoses Not on filedocumented in this encounter Additional Health Concerns Assessment Noted Time A fall risk assessment has been complete d for the patient 06/19/2024 4:06 PM EDT documented as of this encounter Care Teams City Controller Relationship Specialty Start Date End Date Yuliya Mcfarlane MD [address] [place], [place] [phone] PCP - General Internal Medicine 10/02/22 documented as of this encounter
--- OUTSIDE RECORDS SUMMARY | 2025-04-23 13:42 | XMS_ITS | Clinical Summary ---
Author Organization [facility] Phone Care Team Providers Care Special Education Paraprofessional Name Role Phone Yuliya Mcfarlane MD Primary Care Provider [phone] Allergies Active Allergy Reactions Criticality Noted Date Comments Beta-Blockers (Beta-Adrenergic Blocking Agts) Shortness Of Breath High 05/12/2021 Reports he was unable to speak, trouble breathing Duloxetine Other (See Comments) 12/25/2023 [place] drunk, unstable, drowsy, nausea Influenza Virus Vaccine Trivalent Anaphylaxis High 10/03/2022 Medications aspirin (ASPIRIN) 81 mg Oral Tablet, Chewable Take 1 Tablet by mouth daily. 30 Tablet 3 05/12/20 21 Active ACCU-CHEK SOFTCLIX LANCETS Misc MiscIndications:Ty pe 2 diabetes mellitus with diabetic peripheral angiopathy without gangrene, without long-term current use of insulin (HCC) USE DIRECTED TWICE DAILY 06/12/20 22 Active ACCU-CHEK GUIDE ME GLUCOSE MTR Misc MiscIndications:Ty pe 2 diabetes mellitus with diabetic peripheral angiopathy without gangrene, without long-term current use of insulin (HCC) USE DIRECTED 06/12/20 22 Active ACCU-CHEK GUIDE TEST STRIPS Misc StripIndications:T ype 2 diabetes mellitus with diabetic peripheral angiopathy without gangrene, without long-term current use of insulin (HCC) USE DIRECTED TWICE DAILY 06/12/20 22 Active nitroGLYCERIN (NITROSTAT) 0.4 mg SL Tablet, SublingualIndicati ons:Coronary artery disease involving coronary bypass graft of [place] heart with angina pectoris Place 1 Tablet under the tongue every 5 minutes as needed for Chest pain. 30 Tablet 3 05/29/20 23 Active ubrogepant (UBRELVY) 100 mg Oral TabletIndications: Other migraine without status migrainosus, not intractable Take 1 Tablet by mouth as needed for Migraine. May repeat dose in 2 hours one time up to a maximum of 200mg per 24 hours 16 Tablet 1 04/16/20 24 Active B Complex-Folic Acid (B COMPLEX 1, WITH FOLIC ACID,) 0.4 mg Oral Tablet Take 1 Tablet by mouth daily. Active semaglutide (OZEMPIC) 1 mg/dose (4 mg/3 mL) SubQ Pen InjectorIndication s:Type 2 diabetes mellitus with diabetic peripheral angiopathy without gangrene, without long-term current use of insulin (HCC) Subcutaneous (Inject under the skin) 1 mg once a week. 9 mL 1 12/12/19 25 Active empagliflozin (JARDIANCE) 25 mg Oral TabletIndications: Type 2 diabetes mellitus with diabetic peripheral angiopathy without gangrene, without long-term current use of insulin (HCC) Take 1 Tablet by mouth daily. 90 Tablet 1 12/12/19 25 Active carvediloL (COREG) 3.125 mg Oral TabletIndications: Essential hypertension Take 1 Tablet by mouth 2 times daily. 180 Tablet 2 12/12/19 25 Active fUROsemide (LASIX) 80 mg Oral TabletIndications: Essential hypertension Take 1 Tablet by mouth daily. 90 Tablet 2 12/12/19 25 Active olmesartan (BENICAR) 5 mg Oral TabletIndications: Essential hypertension Take 1 Tablet by mouth daily. 90 Tablet 2 12/12/19 25 Active rosuvastatin (CRESTOR) 40 mg Oral TabletIndications: Hyperlipidemia, unspecified hyperlipidemia type Take 1 Tablet by mouth daily. 90 Tablet 2 12/12/19 25 Active ELIQUIS 5 mg Oral TabletIndications: Factor V Leiden Take 1 Tablet by mouth 2 times daily. 180 Tablet 2 12/12/19 25 Active VASCEPA 1 gram Oral CapsuleIndications :Coronary artery disease involving coronary bypass graft of [place] heart with angina pectoris Take 1 Capsule by mouth 2 times daily. 180 Capsule 1 12/12/19 25 Active gabapentin (NEURONTIN) 100 mg Oral CapsuleIndications :Type 2 diabetes mellitus with diabetic peripheral angiopathy without gangrene, without long-term current use of insulin (HCC),Sleep difficulties Take 1 Capsule by mouth 2 times daily. 90 Capsule 12/12/19 25 Active lidocaine (LIDODERM) 5 % Top Adhesive Patch, MedicatedIndicatio ns:Right hip pain,Greater trochanteric bursitis of right hip Place 1 Patch onto the skin every [address] 1 patch onto the skin every 12 hours and off 12 hours between use 30 Patch 12/24/19 25 Active sodium,potassium,m ag sulfates 17.5-3.13-1.6 gram Oral Recon Soln Take 6 oz by mouth 2 times daily. SUPREP: Take as prescribed by doctor's office 354 mL 01/21/20 25 Active omeprazole (PRILOSEC) 20 mg Oral Capsule, Delayed Release(E.C.) Take 1 Capsule by mouth 2 times daily (before meals). 120 Capsule 3 04/13/20 25 Active Active Problems Patient Care Coordination No te Formatting of this note migh t be different from the original. 05/12/21 [facility] #[id number] (as expected) Danielle Luis MD Problem Noted Date Diagnosed Date Achilles tendinitis of left lower extremity 02/08 Milli's deformity, left 02/26/2025 Partial tear of left Achilles tendon 02/26/2025 Peripheral polyneuropathy 12/11/2024 Assessment & Plan (12/11/2024 6:25 PM EDT): Chronic issue worse on right leg/foot. Could have ischemic and diabetic component. Has tried various meds in the past to help with pain. Plan to retry gabapentin 100mg TID. Will increase to 300mg TID in next few weeks as tolerated. HFrEF (heart failure with reduced ejection fract ion) 06/24/2024 Assessment & Plan (12/11/2024 6:25 PM EDT): Euvolemic. On GDMT. Assessment & Plan (06/24/2024 5:49 PM EDT): No evidence of hypervolemia. Has chronic dyspnea on exertion but no leg edema or orthopnea. Continue beta mindi, lasix, acei, and sglt2 inhibitor.. Elevated ALT measurement 04/28/2024 Migraine without status migrainosus, not intract able 04/16/2024 Overview (04/16/2024): Got relief from ubrelvy. Not candidate for triptans with vascular/CAD history. Assessment & Plan (06/24/2024 2:08 PM EDT): Doing well with ubrelvy prn Achilles tendinitis, left leg 04/16/2024 Seborrheic keratoses 04/16/2024 Telangiectasia 04/16/2024 Lipoma of torso 04/16/2024 Severe obesity with body mas s index (BMI) of 35.0 to 39.9 with comorbidity 04/14/2024 Overview (04/16/2024): On ozempic 0.5mg weekly Assessment & Plan (04/16/2024 2:14 PM EDT): Discussed lifestyle measures and benefit of weight loss. Diastasis recti 12/28/2023 Assessment & Plan (12/28/2023 4:59 PM EDT): We discussed diastasis recti. We discussed that it is not a hernia, but it is a risk factor for hernia development if he would have surgery. We discussed the option of a CT if he develops symptoms to look for a hernia. He declined that at this time as he has no symptoms. All questions were answered. Follow-up PRN Diabetic peripheral neuropathy 05/29/2023 Overview (04/16/2024): Previously tried gabapentin, lyrica, elavil, cymbalta without significant improvement Coronary artery disease invo lving coronary bypass graft of [place] heart with angina pectoris 05/29/2023 Overview (04/16/2024): On asa 81mg, rosuvastatin 40mg daily, vascepa 1g bid, carvedilol 3.125mg bid Assessment & Plan (12/11/2024 6:25 PM EDT): No recent angina. Orders: VASCEPA 1 gram Oral Capsule; Take 1 Capsule by mouth 2 times daily. Assessment & Plan (06/24/2024 5:49 PM EDT): No angina. Had reassuring stress test last month. Lasg LDL < 70. Polycythemia 10/24/2022 Assessment & Plan (12/11/2024 6:25 PM EDT): Noted on last cbc 10/2024. Unclear etiology Orders: CBC WITH DIFF; Future ERYTHROPOIETIN -REF LAB; Future Encounter for annual wellness exam in Medicare p atient 10/02/2022 Overview (04/16/2024): Screening labs and/or vaccinations per below. Discussed [id number], shingles vaccine, Tdap, RSV. He is not interested. Encouraged regular dental visits Recommended: continue current medications and return for routine annual checkups. Hepatitis C Screening (age 18-79): prev neg AAA Screening (age 65-75 and ever a smoker): done- following per vascular, repeat due Colon cancer screening (age 45-75): cologuamilagros 09/2022 negative Prostate cancer screening (age 55-69, shared decision making): Not indicated Lung cancer screening: (annual low-dose CT if age 50-80 y/o, >20 pack-yr, current smoker or quit within 15 yrs): Not indicated Advanced directive: Yes- not on file Bilateral hearing loss 10/02/2022 Overview (10/02/2022): Has had hearing aids but not comfortable for use. Assessment & Plan (10/13/2024 3:51 PM EST): Orders: AMB REFERRAL TO ENT Anticoagulated 05/16/2022 Overview (05/16/2022): raven Assessment & Plan (05/16/2022 3:10 PM EDT): No change Aneurysm of left popliteal artery 05/16/2022 Overview (05/16/2022): 03/17/22 scan L popliteal 1.2 cm Assessment & Plan (05/16/2022 3:14 PM EDT): No intervention Repeat scan in 1 year On eliquis and ASA so unlikely to thrombose Nocturnal leg cramps 05/16/2022 Overview (05/16/2022): L leg > R leg Frequent Wants to try KCl tablets Assessment & Plan (01/01/2023 5:41 PM EDT): Could have degree of RLS. He is still taking potassium supplement since being on lasix. Discussed trial of ropinorole 0.25mg qhs. Also might have iron deficiency and could consider iron supplementation as possible treatment if so. Assessment & Plan (05/16/2022 3:20 PM EDT): He is to check blood work in 2 days and then will let Dr Dahl prescribe KCl tablets after the labs prove normal renal function Former smoker - quit 199702/02/2022 History of revascularization procedure of lower extremity 02/02/2022 Abdominal aortic aneurysm (AAA) without rupture 02/02/2022 Overview (10/02/2022): Follows with vascular Dr. Luis [facility] SCREEN - 01/19/2022 * A small (diameter 3.0-4.0 cm) abdominal aortic aneurysm is noted with a maximal diameter of 3.10 cm Assessment & Plan (05/16/2022 3:13 PM EDT): Need to repeat study in 2-3 years for the Lt iliac Assessment & Plan (02/02/2022 5:19 PM EDT): 3.1 cm on duplex 01/19/2022 Continue medical management Repeat duplex in 1 year Factor V Leiden 05/12/2021 Overview (05/16/2022): On lifelong eliquis Had R femtib bypass clot Assessment & Plan (12/11/2024 6:25 PM EDT): No significant bleeding issues on eliquis. Orders: ELIQUIS 5 mg Oral Tablet; Take 1 Tablet by mouth 2 times daily. Assessment & Plan (06/24/2024 5:49 PM EDT): On daily eliquis. Has some bruising on arm but otherwise no issues with this. Assessment & Plan (05/16/2022 3:10 PM EDT): Stay on the eliquis and ASA 81 Assessment & Plan (02/02/2022 5:18 PM EDT): with history of arterial thrombosis. Continue Eliquis. Seems to be tolerating it well Assessment & Plan (05/12/2021 11:40 AM EDT): Continue Eliquis, denies history of VTE Hyperlipidemia 05/12/2021 Overview (01/01/2023): Rosuvastatin 40mg daily Assessment & Plan (12/11/2024 6:25 PM EDT): Goal: - Last LDL Cholesterol - 58 - 04/25/2024 - highest tolerated statin and lifestyle modifications for primary prevention in a high risk patient Compliance: - compliant with medications Advice: - take medications as prescribed Medication Management: - a reassessment of the patients current diagnoses, medications, labs, potential SE, appropriate dose and risks assessed and discussed today Orders: rosuvastatin (CRESTOR) 40 mg Oral Tablet; Take 1 Tablet by mouth daily. Essential hypertension 05/12/2021 Overview (01/01/2023): Meds: carvedilol 3.125mg bid, olmesartan 5mg dialy Assessment & Plan (12/11/2024 6:25 PM EDT): Goal BP: <130/80 BP Readings from Last 3 Encounters: 12/11/24 102/80 11/05/24 109/74 10/13/24 110/72 - at goal Compliance: - compliant with medications Home Blood Pressure Monitoring: - continue home BP monitoring as previous and bring readings to each office visit Advice: - continue a low salt diet and remain physically active Medication Management: - medication management decisions took place at today's visit (see orders) Orders: carvediloL (COREG) 3.125 mg Oral Tablet; Take 1 Tablet by mouth 2 times daily. fUROsemide (LASIX) 80 mg Oral Tablet; Take 1 Tablet by mouth daily. olmesartan (BENICAR) 5 mg Oral Tablet; Take 1 Tablet by mouth daily. Assessment & Plan (06/24/2024 2:08 PM EDT): BP looks good. Using home cuff. Continue meds w/o changes. Assessment & Plan (05/29/2023 2:10 PM EDT): Chronic issue. Stable. Continue therapy without changes. Assessment & Plan (01/01/2023 5:40 PM EDT): Controlled. Peripheral arterial disease 05/12/2021 Overview (10/02/2022): Follows with vascular surgery Takes crestor, raven and baby aspirin Aneurysm of right popliteal artery 05/12/2021 Overview (05/16/2022): 2011 had stent followed by 2014 bypass, most recently tPA in 2015 with patch TP trunk Assessment & Plan (05/16/2022 3:12 PM EDT): Thrombosed, no intervention needed at present Assessment & Plan (05/12/2021 11:41 AM EDT): Will obtain arterial studies to look for recurrent disease and rule out left popliteal artery aneurysm as the left popliteal pulse is prominent Intermittent claudication of right lower extremity due to atherosclerosis 05/12/2021 Overview (10/03/2022): History of stent and bypass in 2011 and 2014 for right popliteal artery aneurysm and then stent thrombosis.. Arterial duplex 01/19/2022 shows occluded bypass graft and monophasic tibial flow with flat PPG's in the toes. His left popliteal artery is 1.2 cm and has no significant arterial insufficiency on the left. 10/02/22: reports ongoing pain in RLE. Previously was prescribed tylenol 3's by old PCP for this. Meds: aspirin and Eliquis Assessment & Plan (05/16/2022 3:09 PM EDT): No intervention needed Follow up in one year Call early if sudden pain in the L foot or worsening problems with the right leg/foot Assessment & Plan (05/12/2021 5:27 PM EDT): -Will evaluate the arterial studies and bring the patient in if there is a critical result. otherwise f/u in 3 months Type 2 diabetes mellitus wit h diabetic peripheral angiopathy without gangrene, without long-term current use of insulin 05/12/2021 Overview (12/25/2023): Meds: Jardiance, ozempic Assessment & Plan (12/11/2024 6:25 PM EDT): Goal A1C: < 6.5 and TIR >70% - Last A1c - 7.4 - 10/13/2024 - improving Compliance: - working on better diet. Compliant with meds. Home Glucose Monitoring: - none Retinopathy Screening: - patient has no know retinopathy and was reminded to complete a retinal exam every 2 years Nephropathy Assessment: - microalbumin screening completed in the past 12 months Foot Assessment: - no ulcers or pre-ulcers Diet Advice: - discussed improving diet by reducing carbohydrates at today's visit Statin Therapy: - currently on a statin Medication Management: - medication management decisions took place at today's visit (see orders) Orders: semaglutide (OZEMPIC) 1 mg/dose (4 mg/3 mL) SubQ Pen Injector; Subcutaneous (Inject under the skin) 1 mg once a week. empagliflozin (JARDIANCE) 25 mg Oral Tablet; Take 1 Tablet by mouth daily. gabapentin (NEURONTIN) 100 mg Oral Capsule; Take 1 Capsule by mouth 2 times daily. HEMOGLOBIN A1C; Future LIPID PANEL REFLEX; Future CBC WITH DIFF; Future Assessment & Plan (06/24/2024 5:49 PM EDT): Last A1c a bit above goal but he does admit to missing some doses of ozempic prior to that. Plan to increase ozempic to 1mg weekly. Continue jardiance. Orders: CBC WITH DIFF; Future HEMOGLOBIN A1C; Future MICROALBUMIN/CREATININE RATIO URINE; Future TSH REFLEX; Future COMPREHENSIVE METABOLIC PANEL; Future Assessment & Plan (04/16/2024 2:13 PM EDT): Last A1c < 8%. No concerning sx. Assessment & Plan (12/25/2023 3:15 PM EDT): Due to recheck labs. Reminded him to get BW and urine done. Assessment & Plan (05/29/2023 2:09 PM EDT): Last A1c not quite at goal. Will increase jardiance to 25mg dialy. Encouraged him to watch carbohydrates in diet. Assessment & Plan (01/01/2023 5:40 PM EDT): Last A1c slightly above goal of 7%. Recommend increase ozempic to 1mg weekly since tolerating. Due for eye exam. Assessment & Plan (10/03/2022 12:47 PM EST): Reports sugars have been controlled recently but no recent A1c to compare. Continue meds. Will address eye exam/foot exam at follow up. Assessment & Plan (05/16/2022 3:07 PM EDT): Controlled by Dr Dahl Assessment & Plan (05/12/2021 5:25 PM EDT): Not on insulin, no blood work in our system. Controlled by the patient's PCP Resolved Problems Problem Noted Date Diagnosed Date Resolved Date Hearing loss 10/03/2022 10/03/2022 Hypothyroidism 05/12/2021 12/25/2023 Encounters Date Type Department Care Team Description 04/20/2025 Telephone [facility] [address] [facility] [address] [place] [address] Yuliya Mcfarlane MD Prior Authorization (Renewal Ubrelvy) 04/16/2025 Results Follow-Up [facility] [address] [place] [address] Orestes Scott MD PATHOLOGY TISSUE REQUEST 04/13/2025 12:09 PM EDT Anesthesia Event [facility] [place] [address] Jorge Calderon, Jana Hansen, ALLI 04/13/2025 11:20 AM EDT - 04/13/2025 11:59 PM EDT Hospital Encounter [facility] [place] [address] Orestes Scott MD Costantini, Oren M, DO Wendell, Melissa S, CRNA Hill, Misti, RN Whalen, Amber Marie, RN Jones, Melissa, web administrator anticoagulation; Screening for colon cancer; Esophageal dysphagia Discharge Disposition: Home or Self Care 04/08/2025 Telephone [facility] [address] [place] [address] Orestes Scott MD Other 02/26/2025 1:30 PM EDT [facility] [address] [facility] [address] [place] [address] Troy Caro MD Achilles tendinitis of left lower extremity (Primary Dx); Milli's deformity, left; Partial tear of left Achilles tendon, initial encounter 02/19/2025 1:45 PM EDT Office Visit [facility] [address] [place] [address] Jayne Rosa DO ASHD (arteriosclerotic heart disease) (Primary Dx); S/P CABG (coronary artery bypass graft); Ischemic cardiomyopathy; Peripheral arterial disease; Type 2 diabetes mellitus with diabetic peripheral angiopathy without gangrene, without long-term current use of insulin (HCC); Pure hypercholesterolemia 02/10/2025 Telephone [facility] [address] [place] [address] Mari Diggs, STEPHANIE Other from Last 3 Months Surgical History Surgery Date Site/Laterality Comments CORONARY ANGIOPLASTY WITH STENT PLACEMENT CARPAL TUNNEL RELEASE bilteral wrists CARDIAC SURGERY 2009 Medical History Medical History Date Comments DVT (deep venous thrombosis) (HCC) PAD (peripheral artery disease) AAA (abdominal aortic aneurysm) Essential (primary) hypertension Family History Medical History Relation Name Comments Diabetes Brother Heart Disease Father Cancer Maternal Grandmother cancer unknown Heart Disease Mother Heart Disease Sister Relation Name Status Comments Brother Father Maternal Grandmother Mother Sister Alive Social History Tobacco Use Types Packs/Day Years Used Date Smoking Tobacco: Former Cigarettes Q uit: 1997 Passive Smoke Exposure: Past Smokeless Tobacco: Never Tobacco Cessation:Counseling Given: Not Answered Alcohol Use Standard Drinks/Week Comments Not Asked [...] on file Sexual Orientation Not on file Obstetrics History Last Filed Vital Signs Vital Sign Reading [...] Mass Index 35.74 04/13/2025 11:41 AM EDT Plan of Treatment Upcoming Encounters Date Type Department Care Team (Late st Contact Info) Description 07/22/2025 7:30 AM EST Hospital En[facility] [address] [place] [address] Troy Caro MD [address] [address] 07/22/2025 7:30 AM EST - 07/22/2025 8:20 AM EST [facility] [address] [place] [address] Troy Caro MD [address] [address] ACHILLES TENDON RECONSTRUCTION WITH FLEXOR HALLUCIS LONGUS TENDON TRANSFER AND EXCISION HAGLUNDS DEFORMITY CALCANEUS 07/30/2025 2:30 PM EST Appointment [facility] [address] [place] [phone] Tamiko Orta APRN [address] [place] [address] DR BROU[address] [place] [address] 07/30/2025 3:40 PM EST Office Visit [facility] [address] [address] Tamiko Orta [address] BROUSS[address] [place] [address] 08/03/2025 1:30 PM EST Office Visit [facility] [address] [address] Aki Mckeon PA-C [address] [place] [address] 10/28/2025 2:45 PM EST Office Visit [facility] [address] [address] ShelleyPradeepi, DO [address] [place] [address] Scheduled Procedures Name Priority Associated Diagnoses Date/Ti me ACHILLES TENDON RECONSTRUCTION WITH FLEXOR HALLUCIS LONGUS TENDON TRANSFER AND EXCISION HAGLUNDS DEFORMITY CALCANEUS Achilles tendinitis of left lower extremity Milli's deformity, left Partial tear of left Achilles tendon, initial encounter 07/22/2025 7:30 AM EST Health Maintenance Due Date Last Done Comments Pneumococcal Vaccine 50+ (1 of 2 - PCV) 1971 FIT 1997 Sigmoidoscopy 1997 Virtual Colonography 1997 Zoster (1 of 2) 2002 RSV or 60+ (1 - Risk 60-74 years 1-dose series) 2012 COVID-19 Vaccine ( season) 2024 Hemoglobin A1c 04/12/2025 10/13/2024, 04/10, 04/18/2023, Additional history exists Wellness Exam Medicare 04/17/2025 04/16/2024 Diabetic Eye Exam 04/19/2025 04/19/2023 Lipids 04/25/2025 04/25/2024, 10/17/2022 Cologuard 10/09/2025 10/09/2022, 10/09/2022 Kidney Health: eGFR 10/13/2025 10/13/2024, 04/25/2024, 04/18/2023, Additional history exists Kidney Health: uACR 10/13/2025 10/13/2024, Colon Cancer Screening 04/13/2028 Colonoscopy 04/13/2028 04/13/2025 DTaP/TDaP/Td (2 - Td or Tdap) 03/24/2035 03/24/2025 Hepatitis C Screening Completed 10/17/2022 Hepatitis B Vaccine Aged Out No longe r eligible based on patient's age to complete this topic Influenza Vaccine Discontinued Meningococcal B Vaccine Aged Out No l onger eligible based on patient's age to complete this topic Goals Goal Patient Goal Type Associated Problems [...] 2:00 PM EST) No Paty Fernandez CMA Procedures Procedure Name Priority Date/Time Associated Diagnosis Comments ESOPHAGOGASTRODUODENOSCOPY ([facility]) Routine 04/13/2025 12:40 PM EDT Chronic anticoagulation Esophageal dysphagia COLONOSCOPY Routine 04/13/2025 12:40 PM EDT Chronic anticoagulation Screening for colon cancer PATHOLOGY TISSUE REQUEST Routine 12:25 PM EDT Chronic anticoagulation Screening for colon cancer Esophageal dysphagia GLUCOSE METER POC Routine 04/13/2025 11:46 AM EDT MICROALBUMIN/CREATININE RATI O URINE Routine 10/13/2024 2:00 PM EST Type 2 diabetes mellitus with diabetic peripheral angiopathy without gangrene, without long-term current use of insulin (HCC) COMPREHENSIVE METABOLIC PANEL Routine 2:00 PM EST Type 2 diabetes mellitus with diabetic peripheral angiopathy without gangrene, without long-term current use of insulin (HCC) HEMOGLOBIN A1C Routine 10/13/2024 2:00 PM EST Type 2 diabetes mellitus with diabetic peripheral angiopathy without gangrene, without long-term current use of insulin (HCC) LIPID PANEL REFLEX Routine 04/25/2024 12:50 PM EDT Type 2 diabetes mellitus with diabetic peripheral angiopathy without gangrene, without long-term current use of insulin (HCC) HCV ANTIBODY SCREEN W/ REFLEX Routine 11:38 AM EST Medicare annual wellness visit, subsequent COLOGUARD Routine 10/09/2022 11:59 AM EST Screening for cancer of the rectum Screening for colon cancer from Last 3 Months or Most Recently Relevant to Health Maintenance Results * ESOPHAGOGASTRODUODENOSCOPY (EGD) (04/13/2025 12:40 PM [...] Scott MD Performing Provider RONDA Santana CRNA, public health technologist Nurse Camille Cole RN Tobacco Grader Jorge Calderon DO Anesthesiologist Medications See [...] Scott MD Performing Provider RONDA Santana CRNA, public health technologist Nurse Camille Cole RN Tobacco Grader Jorge Calderon, Anesthesiologist Medications See Anesthesia Record. Preprocedure A [...] Tissue Large Intestine, Cecum PATHOLOGY TISSUE REQUEST Oerstes Scott MD 04/13/2025 1225 2 : transverse [...] PM EDT) CASE REPORT Surgical Pathology Case: [id number] Authorizing Provider: Orestes Scott MD Collected: 04/13/2025 1225 Ordering Location: [facility] Received: 04/13/2025 1411 Pathologist: Emma So MD Specimens: A) - Large Intestine, Cecum, cecal poylp via cold snare B) - Large Intestine, Transverse Colon, transverse polyps via cold snare 04/15/2025 8:43 AM EDT [facility] FINAL DIAGNOSIS A. Cecal polyp, biopsy: - Tubular adenoma. - Negative for high grade dysplasia or malignancy. B. Transverse colon polyps, biopsy: - This case requires additional levels. Once additional levels are reviewed the final diagnosis will occur in the addendum section. 04/15/2025 8:43 AM EDT [facility] at 0657 EDT ADDENDUM B. Transverse colon polyps, biopsy: - Tubular adenoma. - Negative for high grade dysplasia or malignancy. Deeper levels were performed in this case. 04/15/2025 8:43 AM EDT [facility] Addendum electronically signed by Emma So [...] Nadir Duran 04/14/2025 04/15/2025 8:43 AM EDT [facility] MICROSCOPIC DESCRIPTION The microscopic examination may have been rendered in whole, or in part, by analyzing high-resolutio n digital images (whole slide images) on the [employer] Digital Pathology platform validated at [facility]. 04/15/2025 8:43 AM EDT [facility] EMBEDDED IMAGES 04/15/2025 8:43 AM EDT [facility] Tissue CECUM STRUCTURE / Unknown 04/13/2025 12:25 PM EDT 04/13/2025 2:11 PM EDT Tissue specimen (specimen) TRANSVERSE COLON STRUCTURE / Unknown 04/13/2025 12:29 PM EDT 04/13/2025 2:11 PM EDT Orestes Scott MD PATHOLOGY ORDERABLES Edited Result - Final Performing Organization Address City/[facility] Co de Phone Number [facility] [address] [place] [address] * (ABNORMAL) GLUCOSE METER POC (04/13/2025 11:46 AM EDT) Glucose Meter POC 162(H) 70 - 100 mg/dL 04/13/2025 11:51 AM EDT [facility] Sample Type Capillary 04/13/2025 11:51 AM EDT [facility] Patient Status Non-Critical Patient 04/13/2025 11:51 AM EDT [facility] Blood BLOOD SPECIMEN / Unknown 04/13/2025 11:46 AM EDT 04/13/2025 11:51 AM EDT us Orestes Scott MD POINT OF CARE TEST ORDERABLE S Final Result Performing Organization Address [facility] Co de Phone Number [facility] [address] [place] [address] * MICROALBUMIN/CREATININE RATIO URINE (10/13/2024 2:00 PM EST) Pathologist [facility] Urine Microalb <12.0 mg/L 10/13/2024 8:13 PM EST [facility], [facility] Urine Creatinine 15.3 mg/dL 10/13/19 25 8:13 PM EST [facility], [facility] Ur Microalb/Creat 025 8:13 PM EST [facility] [employer] [facility], [facility] Comment: Because the albumin level is below the level of detection in this urine specimen, the laboratory is unable to calculate a reliable albumin/creatinine ratio. Microalbuminuria is unlikely if the urine albumin concentration is less than 20- 30 mg/L in a random specimen. Urine URINE SPECIMEN COLLECTION / Unknown 10/13/2024 2:00 PM EST 10/13/2024 2:00 PM EST us Yuliya Mcfarlane MD URINE ORDERABLES Final Result Performing Organization Address City/[facility]/ZIP Co de Phone Number [facility], [address] [place] [address] * (ABNORMAL) HEMOGLOBIN A1C (10/13/2024 2:00 PM EST) [facility] Hgb A1C 7.4(H) 4.2 - 5.6 % 10/13/2024 6:04 PM EST [facility] Est. Avg Glucose 166 mg/dL 10/13/2024 6:04 PM EST [facility] Blood VENOUS BLOOD / Unknown Venipuncture / Unknown 10/13/2024 2:00 PM EST 10/13/2024 2:00 PM EST Narrative [facility] - 10/13/2024 6:04 PM EST REFERENCE RANGE: Normal: 4.0-5.6% Pre-diabetes: 5.7-6.4% Provisional diagnosis of diabetes: >6.4% Hgb F>10% and anything which shortens red cell survival, such as hemolytic anemia, or unstable hemoglobin variants such as HbSS, HbSC, or HbCC, will lower the HbA1c value associated with a given level of glycemic control. us Yuliya Mcfarlane MD CHEMISTRY ORDERABLES Final Resu lt [facility], [address] , [address] [place] [id number] [facility] [address] [place] [address] * (ABNORMAL) COMPREHENSIVE METABOLIC PANEL (10/13/2024 2:00 PM EST) [facility] Sodium 140 136 - 145 mmol/L 10/13/2024 7:05 PM EST [facility] Potassium 4.8 3.5 - 5.0 mmol/L 10/13/2024 7:05 PM EST [facility] Chloride 101 98 - 107 mmol/L 10/13/2024 7:05 PM EST [facility] Total CO2 28 22 - 29 mmol/L 10/13/2024 7:05 PM EST [facility] Anion Gap 11 7 - 16 mmol/L 10/13/2024 7:05 PM EST [facility] Calcium 9.6 8.8 - 10.4 mg/dL 10/13/2024 7:05 PM EST [facility], [facility] Glucose Lvl 167(H) 70 - 99 mg/dL 10/13/2024 7:05 PM EST [facility], [facility] BUN 21 8 - 23 mg/dL 10/13/2024 7:05 PM EST [facility] Creatinine 1.09 0.67 - 1.30 mg/dL 10/13/2024 7:05 PM EST [facility] Albumin 4.8(H) 3.2 - 4.6 gm/dL 10/13/2024 7:05 PM EST [facility] Total Protein 7.4 6.4 - 8.3 gm/dL 10/13/2024 7:05 PM EST [facility] Bili Total 1.1 0.2 - 1.4 mg/dL 10/13/2024 7:05 PM EST [facility] ALT 36 <=41 U/L 10/13/2024 7:05 PM EST [facility] AST 28 <=40 U/L 10/13/2024 7:05 PM EST [facility] Alk Phos 33(L) 40 - 129 U/L 10/13/2024 7:05 PM EST [facility] eGFR (CKD-EPIcr 2020) 72 >=60 mL/min/1.7 3 m2 10/13/2024 7:05 PM EST [facility] Comment:Estimated GFR was ca lculated using the CKD-EPIcr (2020) equation refit without race. The equation is recommended by the National Kidney Foundation - [place] [employer] of Nephrology Task Force. Blood VENOUS BLOOD / Unknown Venipuncture / Unknown 10/13/2024 2:00 PM EST 10/13/2024 2:00 PM EST us Yuliya Mcfarlane MD CHEMISTRY ORDERABLES Final Resu lt [facility], [address] , [place] [address] [facility] [address] [place] [address] * (ABNORMAL) LIPID PANEL REFLEX (04/25/2024 12:50 PM EDT) Cholesterol 115 <200 mg/dL 04/25/2024 5:33 PM EDT [facility] Comment: < 200 Desirable 200 - 239 Borderline High >= 240 High Triglyceride 118 <150 mg/dL 04/25/2024 5:33 PM EDT [facility], [facility] Comment: < 150 Normal 150 - 199 Borderline High 200 - 499 High >= 500 Very High HDL 36(L) >=40 mg/dL 04/25/2024 5:33 PM EDT [facility] Comment: > 60 Optimal 40 - 60 Acceptable < 40 Low LDL Calculated 58 <100 mg/dL 04/25/2024 5:33 PM EDT [facility] Non-HDL-C Calculated 79 <=129 mg/dL 04/25/2024 5:33 PM EDT [facility], [facility] Comment: <130 Desirable 130-159 Above Desirable 160-189 Borderline High 190-219 High >= 220 Very High Fasting Specimen? Yes None 024 5:33 PM EDT [facility] Blood VENOUS BLOOD / Unknown Venipuncture / Unknown 04/25/2024 12:50 PM EDT 04/25/2024 12:50 PM EDT Keyonna Burgos MD CHEMISTRY ORDERABLES Final Result Performing Organization Address [facility] de Phone Number [facility] [address] [facility], [place] [address] [facility] [address] [place] [address] * HEPATITIS C ANTIBODY - SCREENING (10/17/2022 11:38 AM EST) Pathologist [facility] Hep C Ab Non-Reactiv e Non-Reacti ve 10/17/2022 5:14 PM EST [facility] Blood VENOUS BLOOD / Unknown Venipuncture / Unknown 10/17/2022 11:38 AM EST 10/17/2022 11:38 AM EST Yuliya Mcfarlane MD HEMATOLOGY ORDERABLES Final Res ult Performing Organization Address City/[facility]/ZIP Co de Phone Number [employer] [address] [facility], [place] [address] * COLOGUARD (10/09/2022 11:59 AM EST) COLOGUARD CLINICAL REPORT Negative Negative [facility] Comment: NEGATIVE TEST RESULT. A negative Cologuard result indicates a low likelihood that a colorectal cancer (CRC) or advanced adenoma (adenomatous polyps with more advanced pre-malignant features) is present. The chance that a person with a negative Cologuard test has a colorectal cancer is less than 1 in 1500 (negative predictive value >99.9%) or has an advanced adenoma is less than 5.3% (negative predictive value 94.7%). These data are based on a prospective cross-sectional study of 10,000 individuals at average risk for colorectal cancer who were screened with both Cologuard and colonoscopy. (Estuardo Fofana et al, N Engl J Med 2014;370(14):2386-6042) The normal value (reference range) for this assay is negative. COLOGUARD RE-SCREENING RECOMMENDATION: Periodic colorectal cancer screening is an important part of preventive healthcare for asymptomatic individuals at average risk for colorectal cancer. Following a negative Cologuard result, the [place] Cancer Society and U.S. Multi-Society Task Force screening guidelines recommend a Cologuard re-screening interval of 3 years. References: [place] [employer] Society Guideline for Colorectal Cancer Screening: https://www.cancer.org/cancer/afawi-mrrxtb-izgeeq/kxesvtsjp-gzagsmeym-xxizoow/ac s-rec ommendations.html.; Tod LAIRD, Jeison CR, Stiven MorrisseyK, Colorectal Cancer Screening: Recommendations for Physicians and Patients from the U.S. Multi-Society Task Force on Colorectal Cancer Screening , Am J Gastroenterology 2017; 112:0098-2981. TEST DESCRIPTION: Composite algorithmic analysis of stool DNA-biomarkers with hemoglobin immunoassay. Quantitative values of individual biomarkers are not reportable and are not associated with individual biomarker result reference ranges. Cologuard is intended for colorectal cancer screening of adults of either sex, 45 years or older, who are at average-risk for colorectal cancer (CRC). Cologuard has been approved for use by the U.S. FDA. The performance of Cologuard was established in a cross sectional study of average-risk adults aged 50-84. Cologuard performance in patients ages 45 to 49 years was estimated by sub-group analysis of near-age groups. Colonoscopies performed for a positive result may find as the most clinically significant lesion: colorectal cancer [4.0%], advanced adenoma (including sessile serrated polyps greater than or equal to 1cm diameter) [20%] or non- advanced adenoma [31%]; or no colorectal neoplasia [45%]. These estimates are derived from a prospective cross-sectional screening study of 10,000 individuals at average risk for colorectal cancer who were screened with both Cologuard and colonoscopy. (Estuardo Horvath. et al, N Engl J Med 2014;370(14):0186-8452.) Cologuard may produce a false negative or false positive result (no colorectal cancer or precancerous polyp present at colonoscopy follow up). A negative Cologuard test result does not guarantee the absence of CRC or advanced adenoma (pre-cancer). The current Cologuard screening interval is every 3 years. ([place] Cancer Society and U.S. Multi-Society Task Force). Cologuard performance data in a 10,000 patient pivotal study using colonoscopy as the reference method can be accessed at the following location: www.[employer].Model Metrics/results. Additional description of the Cologuard test process, warnings and precautions can be found at www.cologuard.com. Stool 10/09/2022 11:5 9 AM EST 10/12/2022 11:01 AM EST us Yuliya Mcfarlane MD [employer] SCIENCE - ORDERABLES Jennifer almodovar Result [employer] [address] [place] [address], [facility] [employer] [address] [place] [address] from Last 3 Months or Most Recently Relevant to Health Maintenance [place] [facility] Advance Directives For more information, please contact: [phone] Documents on File Type Date Recorded Patient Genetic Physician Expl anation ADVANCE DIRECTIVE 11/14/2024 11:04 AM direc tive to physicians Care Teams Special Education Paraprofessional Relationship Specialty Start Date End Date Yuliya Mcfarlane MD [address] [place] [address] PCP - General Internal Medicine 10/02/22
--- OUTSIDE RECORDS SUMMARY | 2025-04-23 13:43 | XMS_ITS | Encounter Summary ---
Author Organization [place] [address] Care Team Providers Care Assembler Bicycle Name Role Phone Yuliya Mcfarlane MD Primary Care Provider [phone] Reason for Visit * Reason Onset Date Comments Other 04/08/2025 Encounter Details Date Type Department Care Team (Late st Contact Info) Description 04/08/2025 Telephone [facility] [address], [address] [place] [address] Orestes Scott MD [address] [place] [address] Other Social History Tobacco Use Types Packs/Day Years [...] encounter Miscellaneous Notes * Telephone Encounter - Arleen Cano, Clerical Staff - 04/08/2025 4:31 PM EDT Pt called. He could not find his instructions on [employer]. Wants it sent again. Instructions sent again via [employer]ot to pt documented in this encounter Plan of Treatment Upcoming Encounters Date Type Department Care Team (Late st Contact Info) Description 07/22/2025 7:30 AM EST Hospital En[facility] [address] [place] [address] [place] [address] [place] [address] 07/22/2025 7:30 AM EST - 07/22/2025 8:20 AM EST [facility] [address] [place] [address] Troy Caro MD [address] [address] ACHILLES TENDON RECONSTRUCTION WITH FLEXOR HALLUCIS LONGUS TENDON TRANSFER AND EXCISION HAGLUNDS DEFORMITY CALCANEUS 07/30/2025 2:30 PM EST Appointment [facility] [address] [place] [phone]ta [address] BROUSSARD [address] [place] [address] 07/30/2025 3:40 PM EST Office Visit [facility] [address] [place] [phone] Tamiko Orta APRN [address] [place] [address] [address] BROUSSARD [address] [place] [address] 08/03/2025 1:30 PM EST Office Visit [facility] [address] [address] Aki Mckeon PA-C [address] [place] [address] 10/28/2025 2:45 PM EST Office Visit [facility] [address] [phone] Jayne Rosa [address] [place] [address] Scheduled Procedures Name Priority Associated [...] documented as of this encounter Care Teams Assembler Bicycle Relationship Specialty Start Date End Date Yuliya Mcfarlane MD [address] [place] [address] PCP - General Internal Medicine 10/02/22 documented as of this encounter
--- OUTSIDE RECORDS SUMMARY | 2025-04-23 13:43 | XMS_ITS | Clinical Summary ---
Author Organization [facility] Address [address] [place] [address] Care Team Providers Care Surface Water Technician Name Role Phone Yuliya Mcfarlane MD Primary Care Provider [phone] Source Comments This information has been disclosed to you from confidential records protectedfrom disclosure by state law. You shall make no further disclosure of thisinformation without the specific, written, and informed release of theindividual to whom it pertains, or as otherwise permitted by law. A generalauthorization for the release of medical or other information is not sufficientfor the purposes of therelease of HIV test results or diagnoses. [id number] Allergies No known active allergies Medications methylPREDNISol one (MEDROL, INDIRA,) 4 mg tabletIndicatio ns:Achilles tendinitis of left lower extremity,Chron ic pain of left ankle,Milli's deformity of left heel,Short Achilles tendon (acquired), left ankle follow package directions 21 each 4 Active ciclopirox (PENLAC) 8 % solutionIndicat ions:Achilles tendinitis of left lower extremity,Chron ic pain of left ankle,Milli's deformity of left heel,Short Achilles tendon (acquired), left ankle Apply topically at bedtime. 6.6 mL 4 Active Active Problems No known active problems Social History Tobacco Use Types Packs/Day Years Used Date Smoking Tobacco: Never Assessed Sex and Gender Information Value Date Recorded Sex Assigned at Not on file Legal Sex Male 3:40 PM EST Gender Identity Not on file Sexual Orientation Not on file Last Filed Vital Signs Vital Sign Reading Time Taken Comments Blood Pressure - - Pulse - - Temperature - - Respiratory Rate - - Oxygen Saturation - - Inhaled Oxygen Concentration - - Weight 113.9 kg (251 lb) 08/25/2024 11:02 AM EST Height 180.3 cm (5' 11 ) 08/25/2024 11:02 AM EST Body Mass Index 35.01 08/25/2024 11:02 AM EST Plan of Treatment Health Maintenance Due Date Last Done Comments Abnormal Colonoscopy Follow Up 1950 Diabetes Screening 1952 Alcohol Misuse Screening 1970 Depression Screening 1970 Immunization: DTaP/Tdap/Td (1 - Tdap) 1971 Colonoscopy 1997 Stool Testing (gFOBT) 1997 Immunization: Pneumococcal (1 of 1 - PCV) 2002 Immunization: Zoster (1 of 2) 2002 Immunization: COVID-19 ( - season) 2024 Immunization: Influenza (MyChart) (#1) 2025 Cologuard (FIT-DNA) 10/09/2025 10/09/2022 Colorectal Cancer Screening (MyChart) 10/09/2025 Immunization: RSV (Adult) (1 - 1-dose 75+ series) 09/10 Insurance MEDICARE A AND B Member Subscriber Plan / Payer (Ef fective 2018-Present) Name:Sharad Campbell Relation to Subscriber:Self Name:Sharad Campbell Payer ID:[id number] Group ID:Not on file Type:Medicare Address: [address] Care Teams Surface Water Technician Relationship Specialty Start Date End Date Yuliya Mcfarlane MD [address] [place] [address] PCP - General Internal Medicine 07/28/24
[2025-04-23 13:58] VITALS: BP 109/77; PULSE 75; RESP 14; O2SAT 96; BMI 34.7
== END 2025-04-23 23:59 | disposition home or self-care (01) ==
PROVIDERS: Visit Provider Nurse Practitioner Family
DX: M47.26 Other spondylosis with radiculopathy, lumbar region (principal); Z79.1 Long term (current) use of non-steroidal anti-inflammatories (NSAID)
CPT/HCPCS: 99212; G0463

== ENCOUNTER 2025-09-09 15:00 | Outpatient (RCR) | payer MEDICARE, BC, SELFPAY | END 2025-09-09 23:59 | disposition home or self-care (01) | LOC: PT 15:00 | PROVIDERS: Visit Provider Physician Assistant | DX: M76.62 Achilles tendinitis, left leg (principal) | CPT/HCPCS: 97110; 97161 ==